=== PATIENT | female | born 1935 | race Caucasian/White ===

== ENCOUNTER 2016-09-27 19:04 | Emergency (ER) | payer MEDICARE, OTHER ==
[~2016-09-27] VITALS: Ht 162.6 cm; Wt 88.5 kg
--- NOTE | 2016-09-27 19:08 | NUR ---
PT BIB FROM HOME TO ER BED 09. PT IS LUXEMBOURGER SPEAKING. PER REPORT PT IS C/O DEHYDRATION. WAS NOTED TO BE HYPOTENSIVE. GOWNED AND PLACED ON MONITOR. AWAITING MD HUERTAS.
--- NOTE | 2016-09-27 19:10 | NUR ---
DR LEWIS AT BEDSIDE FOR EVAL.
--- NOTE | 2016-09-27 19:27 | NUR ---
RADIOLOGY AT BEDSIDE FOR CHEST XRAY.
[2016-09-27 19:30] LABS: BASOPHILS # (AUTO) 0.7 /CMM (0.0-0.2); EOSINOPHILS % (AUTO) 0.2 % (0.0-6.0); HEMATOCRIT 39 % (33-45); HEMOGLOBIN 12.6 g/dL (11.5-14.8); LYMPHOCYTES # (AUTO) 1.5 /CMM (0.8-4.8); LYMPHOCYTES % (AUTO) 6.4 % (20.0-44.0); MEAN CORPUSCULAR HEMOGLOBIN 30 PG (26.0-33.0); MEAN CORPUSCULAR HGB CONC 32 g/dl (31.0-36.0); MEAN CORPUSCULAR VOLUME 92 fL (82-100); MONOCYTES # (AUTO) 1.5 /CMM (0.1-1.30); MONOCYTES % (AUTO) 6.7 % (2.0-12.0); NEUTROPHILS # (AUTO) 19.3 /CMM (1.8-8.9); NEUTROPHILS % (AUTO) 83.7 % (43.0-81.0); PLATELET COUNT (AUTO) 262 /CMM (150-450); RDW COEFFICIENT OF VARIATION 15.2 (11.5-15.0); RED BLOOD CELL COUNT(AUTO) 4.24 MIL/uL (4.0-5.2)
[2016-09-27] MEDS ORDERED: IV NS 0.9% 500 ML BAG IV ONE (19:30)
[2016-09-27 19:42] LABS: INR 1.04 (0.87-1.13); PROTHROMBIN TIME 10.8 SECS (9.5-12.7)
[2016-09-27 19:47] LABS: ALANINE AMINOTRANSFERASE 30 U/L (12-78); ALBUMIN 3.1 g/dL (3.4-5.0); ALKALINE PHOSPHATASE 76 U/L (46-116); ASPARTATE AMINOTRANSFERASE 34 U/L (15-37); BILIRUBIN,DIRECT 0.2 mg/dL (0.0-0.2); BILIRUBIN,TOTAL 0.6 mg/dL (0.2-1.0); CALCIUM, SERUM 9.1 mg/dL (8.5-10.1); CARBON DIOXIDE 18 mmol/L (21-32); CHLORIDE 109 mmol/L (98-107); CREATININE 2.4 mg/dL (0.6-1.3); GLUCOSE 149 mg/dL (74-106); LIPASE 137 U/L (73-393); POTASSIUM 4.4 mmol/L (3.5-5.1); SODIUM SERUM 142 mmol/L (136-145); TOTAL PROTEIN, SERUM 7.2 g/dL (6.4-8.2); UREA NITROGEN, BLOOD 56 mg/dL (7-18)
[2016-09-27 19:49] LABS: TROPONIN I 0.077 ng/mL (0.00-0.056)
[2016-09-27 20:57] LABS: BAND % (MANUAL) 14 % (0.0-5.0); NEUTROPHILS % (MANUAL) 73 (42-76)
[2016-09-27 20:58] LABS: LYMPHOCYTES % (MANUAL) 7 % (16-48); MONOCYTES % (MANUAL) 6 % (0-11.0)
--- NOTE | 2016-09-27 20:58 | NUR ---
Patient discharged to home in stable condition. Written and verbal after care instructions given. Patient and Family verbalizes understanding of instruction.IV removed. Catheter intact and site benign. Pressure and 4x4 applied to site. No bleeding noted.
[2016-09-27 20:59] VITALS: BP 106/54
== END 2016-09-27 20:59 | disposition home or self-care (01) ==
LOC: ER 19:07
DX: R53.1 Weakness (principal); C34.90 Malignant neoplasm of unspecified part of unspecified bronchus or lung; G89.29 Other chronic pain; H40.9 Unspecified glaucoma; I10 Essential (primary) hypertension; R79.1 Abnormal coagulation profile
CPT/HCPCS: 36415; 71010; 80048; 80076; 83690; 84484; 85025; 85730; 93005; 99285; A4606; J7040 ×2; Z7610

== ENCOUNTER 2016-12-06 10:04 | Inpatient (IN) | payer MEDICARE, OTHER ==
[~2016-12-06] VITALS: Ht 154.9 cm; Wt 97.5 kg
--- NOTE | 2016-12-06 10:15 | NUR ---
BBRA 81 FROM HOME FOR SOB SINCE THIS AM, ON HOME O2. A/OX 4. BREATHING EVEN, SLIGHTLY LABORED. DIMINISHED LUNG SOUNDS, O2 SAT 97% ON 2L VIA NC. SAFETY AND COMFORT MEASURES IN PLACE. AWAITING MD ORDERS.
[2016-12-06] MEDS ORDERED: methylPREDNISolone SOD SUCC 125 MG/2ML VIAL ONE (10:22)
[2016-12-06] MEDS ORDERED: ALBUTEROL FS 2.5 MG/3 ML VIAL.NEB ONE ×2 (10:30→11:50)
[2016-12-06] MEDS ORDERED: ALBUTEROL FS 2.5 MG/3 ML VIAL.NEB NEB ONE ×2 (10:30→12:00)
[2016-12-06] MEDS ORDERED: IPRATROPIUM NEB FS 0.5 MG/2.5 ML AMPUL.NEB ONE ×2 (10:30→11:50)
[2016-12-06] MEDS ORDERED: IPRATROPIUM NEB FS 0.5 MG/2.5 ML AMPUL.NEB NEB ONE ×2 (10:30→12:00)
[2016-12-06] MEDS ORDERED: methylPREDNISolone SOD SUCC 125 MG/2ML VIAL IV ONE (10:30)
[2016-12-06 10:43] LABS: BASOPHILS % (AUTO) 0.5 % (0.0-2.0); EOSINOPHILS # (AUTO) 0.2 /CMM (0.0-0.7); EOSINOPHILS % (AUTO) 2.8 % (0.0-6.0); HEMATOCRIT 36 % (33-45); HEMOGLOBIN 11.7 g/dL (11.5-14.8); LYMPHOCYTES % (AUTO) 15.2 % (20.0-44.0); MEAN CORPUSCULAR HEMOGLOBIN 30 PG (26.0-33.0); MEAN CORPUSCULAR HGB CONC 33 g/dl (31.0-36.0); MEAN CORPUSCULAR VOLUME 91 fL (82-100); MONOCYTES # (AUTO) 0.5 /CMM (0.1-1.30); MONOCYTES % (AUTO) 6.7 % (2.0-12.0); NEUTROPHILS # (AUTO) 5.1 /CMM (1.8-8.9); NEUTROPHILS % (AUTO) 74.8 % (43.0-81.0); PLATELET COUNT (AUTO) 264 /CMM (150-450); RDW COEFFICIENT OF VARIATION 16.6 (11.5-15.0); RED BLOOD CELL COUNT(AUTO) 3.93 MIL/uL (4.0-5.2); WHITE BLOOD COUNT (AUTO) 6.8 K/uL (4.3-11.0)
[2016-12-06 10:58] LABS: CALCIUM, SERUM 9.3 mg/dL (8.5-10.1); CARBON DIOXIDE 25 mmol/L (21-32); CHLORIDE 106 mmol/L (98-107); CREATININE 1.5 mg/dL (0.6-1.3); GLUCOSE 171 mg/dL (74-106); POTASSIUM 4.1 mmol/L (3.5-5.1); SODIUM SERUM 139 mmol/L (136-145); UREA NITROGEN, BLOOD 49 mg/dL (7-18)
[2016-12-06] MEDS ORDERED: ESCI10TA PO (10:59)
[2016-12-06] MEDS ORDERED: DILT240C2 PO (10:59)
[2016-12-06] MEDS ORDERED: LORA1TAB PO (10:59)
[2016-12-06] MEDS ORDERED: NATE120T6 PO (10:59)
[2016-12-06] MEDS ORDERED: ERGO500047 PO (10:59)
[2016-12-06] MEDS ORDERED: ALPR0.25 PO (10:59)
[2016-12-06] MEDS ORDERED: ALLO300T2 PO (10:59)
[2016-12-06] MEDS ORDERED: IPRA12.9 IH (10:59)
[2016-12-06] MEDS ORDERED: FURO-145 PO (10:59)
[2016-12-06] MEDS ORDERED: FENT1PAT6 TD (10:59)
[2016-12-06 11:06] LABS: TROPONIN I 0.021 ng/mL (0.00-0.056)
[2016-12-06 11:11] LABS: ALANINE AMINOTRANSFERASE 32 U/L (12-78); ALBUMIN 3.3 g/dL (3.4-5.0); ALKALINE PHOSPHATASE 87 U/L (46-116); ASPARTATE AMINOTRANSFERASE 38 U/L (15-37); B-TYPE NATRIURETIC PEPTIDE 973 PG/ML (0-125); BILIRUBIN,DIRECT 0.1 mg/dL (0.0-0.2); BILIRUBIN,TOTAL 0.3 mg/dL (0.2-1.0)
--- NOTE | 2016-12-06 11:55 | NUR ---
RT at bedside for treatment
--- NOTE | 2016-12-06 12:19 | NUR ---
REPORT GIVEN TO DOMINGO ROWE FOR ADMISSION.
[2016-12-06] MEDS ORDERED: IV NS 0.9% 1,000 ML IV PRN ×2 (12:58→13:30)
[2016-12-06] MEDS ORDERED: ACETAMINOPHEN 325 MG TABLET PO PRN (13:00)
[2016-12-06] MEDS ORDERED: MAGNESIUM HYDROXIDE 30 ML UDC PO PRN (13:00)
[2016-12-06] MEDS ORDERED: Z GUARD REMEDY 2 OZ OINT TP PRN (13:00)
[2016-12-06] MEDS ORDERED: ZOLPIDEM TARTRATE 5 MG TABLET PO PRN (13:00)
[2016-12-06] MEDS ORDERED: ONDANSETRON HCL/PF 4 MG/2 ML VIAL IVP PRN (13:00)
[2016-12-06] MEDS ORDERED: MAG HYDROX/AL HYDROX/SIMETH 30 ML UDC PO PRN (13:00)
--- NOTE | 2016-12-06 13:00 | NUR ---
roofing applicatorjoiner notes Admitted a 81 years old female patient who came in via gurney accompanied by ER nurse who came in with the following diagnosis COPD exacerbation, and SOB. Patient is alert and oriented x 2, verbally responsive, arabic speaking, offered flu and pnuemonia vaccine and refused. Explained the risk and benefits of vaccinations and still refused. Dr. Reid on site and made aware and admission orders ordered. On tele monitor SR heart rate of 63. No complaint of pain or discomfort noted. On 02 @ 2lpm via NC and tolerated well, 02 saturation of 97%. IV intact and patent. Current weight of 221lbs. Vital signs checked and recorded. Will continue to monitor accordingly.
[2016-12-06] MEDS: ENOXAPARIN SODIUM 40 MG/0.4 ML DISP.SYRIN SQ SCH (13:36)
[2016-12-06 15:05] LABS: ABG BASE EXCESS -3.3 mmol/L; ABG OXYGEN SATURATION 93.9 % (92.0-98.5); ABG PCO2 40.2 mmHg (35.0-45.0); ABG PH 7.355 (7.350-7.450); ABG PO2 72.7 mmHg (75.0-100.0); AaDO2 79.5 mmHg; MetHb 0.5 % (0.0-1.5); O2Hb 93.4 % (94.0-97.0); SITE, ABG Left Radial; VENT MODE, BG NASAL CANNULA
[2016-12-06 16:00] VITALS: BP 146/58
--- NOTE | 2016-12-06 19:11 | NUR ---
teleprinter closing notes All needs provided, attended, and anticipated. On tele monitor SR heart rate of 65, no complaint of pain or discomfort noted. Kept patient clean and comfortable in bed, call light with in patient reach, endorsed to next shift RN to continue care.
[2016-12-06] MEDS ORDERED: LORAZEPAM 1 MG TABLET PO PRN (19:30)
--- NOTE | 2016-12-06 19:35 | NUR ---
BUSINESS EXCELLENCE LEADER NOTE RECEIVED PATIENT FROM DAY SHIFT, PATIENT IS ALERT AND ORIENTEDX2, IRISH SPEAKER MAINLY, NO S/S OF RESPIRATORY DISTRESS OR PAIN AT THIS TIME. TELE SR 65. SRX2, BED IN LOW POSITION, CALL LIGHT WITHIN REACH, WILL CONTINUE TO MONITOR PATIENT.
[2016-12-06] MEDS: IPRATROPIUM NEB FS 0.5 MG/2.5 ML AMPUL.NEB NEB SCH (20:09)
[2016-12-06] MEDS: ESCITALOPRAM OXALATE (10 MG) 10 MG TABLET PO SCH (21:14)
[2016-12-06] MEDS: ALPRAZOLAM 0.25 MG TABLET PO PRN (21:14)
--- NOTE | 2016-12-06 21:15 | NUR ---
OPERATING COST CLERK NOTE XANAX 0.25MG PO GIVEN PER PATIENT'S REQUEST. WILL MONITOR EFFECTIVENESS.
[2016-12-06 22:00] VITALS: BP 167/69
[2016-12-06] MEDS ORDERED: CLONIDINE HCL 0.1 MG TABLET ONE (23:50)
--- NOTE | 2016-12-06 23:55 | NUR ---
SENIOR DIRECTOR OF GLOBAL COMMERCIAL TECHNOLOGY SOLUTIONS NOTE PATIENT BP WAS 169/80, PULSE 80. REPORTED TO ONCALL MD AGUILAR, GOT AN ORDER OF CLONIDINE 0.1MG PO Q6H PRN WHEN SBP>160. ORDERS PUT IN AND ADMINISTERED. WILL RECHECK HER BP.
[2016-12-07] VITALS: BP 169/80
[2016-12-07] MEDS ORDERED: CLONIDINE HCL 0.1 MG TABLET PO PRN
[2016-12-07] MEDS: HYDROCODONE/APAP 5/325MG 1 EACH TABLET PO PRN ×2 (01:09→18:15)
--- NOTE | 2016-12-07 01:09 | NUR ---
WINDING INSPECTOR NOTE PATIENT COMPLAINS OF ABDOMINAL PAIN 08/27, NORCO 5-325MG PO GIVEN. WILL REASSESS EFFECTIVENESS.
[2016-12-07 08:00] VITALS: BP 148/90
[2016-12-07] MEDS: FUROSEMIDE 20 MG TABLET PO SCH (09:07)
[2016-12-07] MEDS: DILTIAZEM HCL CD 240 MG PO SCH (09:07)
[2016-12-07] MEDS: ENOXAPARIN SODIUM 40 MG/0.4 ML DISP.SYRIN SQ SCH (09:10)
[2016-12-07] MEDS ORDERED: BUMETANIDE INJ 2 MG in IV NS 0.9% 32 ML IV ONE (09:30)
[2016-12-07] MEDS: IPRATROPIUM NEB FS 0.5 MG/2.5 ML AMPUL.NEB NEB SCH ×3 (09:57→20:02)
--- NOTE | 2016-12-07 10:08 | NUR ---
BACK SEAM STITCHER OPENING NOTES SYSTEM WAS DOWN THIS MORNING. SEE OPENING NOTES ON THE CHART.
[2016-12-07] MEDS ORDERED: hydrALAZINE HCL 25 MG TABLET PO PRN (10:30)
[2016-12-07 10:35] LABS: CALCIUM, SERUM 9.9 mg/dL (8.5-10.1); CARBON DIOXIDE 25 mmol/L (21-32); CHLORIDE 105 mmol/L (98-107); CREATININE 1.3 mg/dL (0.6-1.3); GLUCOSE 168 mg/dL (74-106); MAGNESIUM 1.9 mg/dL (1.8-2.4); PHOSPHORUS 4.5 mg/dL (2.5-4.9); POTASSIUM 4.4 mmol/L (3.5-5.1); SODIUM SERUM 140 mmol/L (136-145); UREA NITROGEN, BLOOD 46 mg/dL (7-18)
[2016-12-07] MEDS ORDERED: LEVOFLOXACIN 500 MG /D5W 100ML 500 MG in PREMIX 1 EA IV ONE ×2 (11:00→13:00)
[2016-12-07] MEDS ORDERED: LEVOFLOXACIN 500 MG /D5W 100ML 500 MG in PREMIX 1 EA IV SCH ×2 (11:00→13:00)
[2016-12-07] MEDS ORDERED: LEVOFLOXACIN 250 MG /D5W 50 ML 250 MG in PREMIX 1 EA IV SCH (11:00)
[2016-12-07 11:09] LABS: BASOPHILS % (AUTO) 0.1 % (0.0-2.0); HEMATOCRIT 35 % (33-45); HEMOGLOBIN 11.4 g/dL (11.5-14.8); MEAN CORPUSCULAR HEMOGLOBIN 30 PG (26.0-33.0); MEAN CORPUSCULAR HGB CONC 33 g/dl (31.0-36.0); MEAN CORPUSCULAR VOLUME 92 fL (82-100); MONOCYTES % (AUTO) 1.5 % (2.0-12.0); NEUTROPHILS % (AUTO) 86.4 % (43.0-81.0); PLATELET COUNT (AUTO) 263 /CMM (150-450); RDW COEFFICIENT OF VARIATION 16.2 (11.5-15.0); RED BLOOD CELL COUNT(AUTO) 3.81 MIL/uL (4.0-5.2); WHITE BLOOD COUNT (AUTO) 8.5 K/uL (4.3-11.0)
[2016-12-07] MEDS: LEVOFLOXACIN 250 MG /D5W 50 ML 250 MG in PREMIX 1 EA IV SCH (11:56)
[2016-12-07 12:00] VITALS: BP 155/68
--- NOTE | 2016-12-07 13:09 | NUR ---
RN NOTES ABX LEVAQUIN 500MG IVPB NOT GIVEN AT 1100, TIME OF ADMINISTRATION CHANGED TO 1300. WILL CONTINUE TO MONITOR
[2016-12-07] MEDS: ALPRAZOLAM 0.25 MG TABLET PO PRN (14:41)
--- NOTE | 2016-12-07 14:43 | NUR ---
RN NOTES PT NOTED RESTLESS, PRN XANAX 0.25MG GIVEN. DAUGHTER AT BEDSIDE AND AWARE OF PT'S CURRENT STATUS. WILL CONTINUE TO MONITOR.
[2016-12-07 16:00] VITALS: BP 127/62
[2016-12-07 17:10] LABS: APPEARANCE,URINE SL CLOUDY (CLEAR); BILIRUBIN,URINE NEGATIVE (NEGATIVE); BLOOD, URINE NEGATIVE Ery/uL (NEGATIVE); COLOR,URINE YELLOW (YELLOW); KETONES,URINE NEGATIVE (NEGATIVE); LEUKOCYTE ESTERASE ,URINE TRACE (NEGATIVE); NITRITE, URINE NEGATIVE (NEGATIVE); PROTEIN,URINE 1+ mg/dl (NEGATIVE); UGLUCOSE NEGATIVE (NEGATIVE); UROBILINOGEN,URINE 0.2 EU/dL (0.2)
[2016-12-07 17:14] LABS: BACTERIA,URINE Rare /HPF (None Seen); RBC,URINE 0-2 /HPF (0-2); SQUAMOUS EPITHELIAL CELL,UR Few /HPF (None Seen)
[2016-12-07 17:53] LABS: MAGNESIUM 1.9 mg/dL (1.8-2.4); PHOSPHORUS 3.6 mg/dL (2.5-4.9)
--- NOTE | 2016-12-07 19:01 | NUR ---
CREATIVE SERVICES DIRECTOR CLOSING NOTES PATIENT RESTING ON CHAIR BY BEDSIDE AT THIS TIME. ALERT AND ORIENTEDX2, WALLISIAN SPEAKER MAINLY. ON 02 VIA N/C AT 2LPM, NO S/S OF RESPIRATORY DISTRESS OR PAIN AT THIS TIME. ON TELE MONITORING WITH CURRENT READING OF SR AND HR OF 62. KEPT BED WITH SR UPX2, BED IN LOW AND LOCKED POSITION, CALL LIGHT WITHIN REACH. ALL NEEDS AND CARE PROVIDED WELL. WILL ENDORSED TO TRAMPOLINE TEAM COACH NURSE FOR ADITHYA.
--- NOTE | 2016-12-07 19:06 | NUR ---
DRIVER SALES NOTE RECEIVED PATIENT FROM DAY SHIFT, PATIENT IS ALERT AND ORIENTEDX2, CONFUSED AT TIMES, ICELANDIC SPEAKER, NO S/S OF RESPIRATORY DISTRESS OR PAIN AT THIS TIME. IV ON LEFT WRIST IS PATENT AND INTACT, SL ONLY. TELE SR 64 WITH BBB. SRX2, BED IN LOW POSITION, CALL LIGHT WITHIN REACH, WILL CONTINUE TO MONITOR PATIENT.
--- NOTE | 2016-12-07 19:23 | NUR ---
Patient speaks Swedish only. She is alert and pleasant. Spoke with daughter Madison [phone], patient lives alone in the upper apartment with no elevator access. Patient ambulates with a walker, she requires min assist with adl's. She own a wheelchair, walker, shower chair, glucometer and commode. No homehealth services reported. Patient has 180hrs/month of [facility] caregiver. Her pcp is Dr. Valdez.Family want patient to return home and are working on hiring additional caregiver for the patient. Addendum: 12/07/16 at 1924 by DIMPLE CORTEZ RN Amended: Links added.
[2016-12-07 20:00] VITALS: BP 155/75
--- NOTE | 2016-12-07 21:00 | NUR ---
REGIONAL TRUCK DRIVER NOTE ATIVAN 1MG PO GIVEN PER PATIENT HAS ANXIETY. WILL MONITOR EFFECTIVENESS.
[2016-12-07] MEDS: ESCITALOPRAM OXALATE (10 MG) 10 MG TABLET PO SCH (21:01)
[2016-12-07 21:26] LABS: THYROID STIMULATING HORMONE 0.623 uIU/mL (0.358-3.74)
[2016-12-08] VITALS: BP 145/92
[2016-12-08] MEDS: IPRATROPIUM NEB FS 0.5 MG/2.5 ML AMPUL.NEB NEB SCH ×4 (02:37→20:39)
[2016-12-08 04:00] VITALS: BP 146/76
[2016-12-08] MEDS: ALPRAZOLAM 0.25 MG TABLET PO PRN (05:56)
--- NOTE | 2016-12-08 06:43 | NUR ---
WINERY CELLAR HAND NOTE PATIENT IS RESTING IN BED, NO S/S OF PAIN OR DISCOMFORT AT THIS TIME. IV ON LEFT WRIST IS PATENT AND INTACT, HL ONLY. TELE MONITOR SR 63. WILL ENDORSE TO DAY SHIFT NURSE FOR ADITHYA.
[2016-12-08 07:08] LABS: BASOPHILS % (AUTO) 0.1 % (0.0-2.0); EOSINOPHILS % (AUTO) 0.1 % (0.0-6.0); HEMATOCRIT 35 % (33-45); HEMOGLOBIN 11.4 g/dL (11.5-14.8); LYMPHOCYTES # (AUTO) 1.2 /CMM (0.8-4.8); LYMPHOCYTES % (AUTO) 9.3 % (20.0-44.0); MEAN CORPUSCULAR HEMOGLOBIN 30 PG (26.0-33.0); MEAN CORPUSCULAR HGB CONC 32 g/dl (31.0-36.0); MEAN CORPUSCULAR VOLUME 92 fL (82-100); MONOCYTES # (AUTO) 0.5 /CMM (0.1-1.30); MONOCYTES % (AUTO) 4.2 % (2.0-12.0); NEUTROPHILS # (AUTO) 10.9 /CMM (1.8-8.9); NEUTROPHILS % (AUTO) 86.3 % (43.0-81.0); PLATELET COUNT (AUTO) 281 /CMM (150-450); RDW COEFFICIENT OF VARIATION 16.5 (11.5-15.0); RED BLOOD CELL COUNT(AUTO) 3.82 MIL/uL (4.0-5.2); WHITE BLOOD COUNT (AUTO) 12.6 K/uL (4.3-11.0)
--- NOTE | 2016-12-08 07:28 | NUR ---
MS/RN OPENING NOTE PATIENT RECEIVED IN BED AWAKE IN STABLE CONDITION. A/O X 2 WITH EPISODES OF CONFUSION AND FORGETFULNESS. MOLDOVAN SPEAKING. NO SIGNS OF ACUTE DISTRESS. NO COMPLAIN OF PAIN OR DISCOMFORT. ON TELE MONITOR WITH SR. ALL NEEDS ATTENDED TO. CALL LIGHT WITHIN REACH. WILL CONTINUE TO MONITOR TO ENSURE SAFETY.
[2016-12-08 07:31] LABS: CALCIUM, SERUM 9.7 mg/dL (8.5-10.1); CARBON DIOXIDE 26 mmol/L (21-32); CHLORIDE 102 mmol/L (98-107); CREATININE 1.5 mg/dL (0.6-1.3); GLUCOSE 138 mg/dL (74-106); MAGNESIUM 1.8 mg/dL (1.8-2.4); POTASSIUM 4.3 mmol/L (3.5-5.1); SODIUM SERUM 138 mmol/L (136-145); UREA NITROGEN, BLOOD 53 mg/dL (7-18)
[2016-12-08 08:00] VITALS: BP 162/83
[2016-12-08] MEDS: ENOXAPARIN SODIUM 40 MG/0.4 ML DISP.SYRIN SQ SCH (08:26)
[2016-12-08] MEDS: FUROSEMIDE 20 MG TABLET PO SCH (08:26)
[2016-12-08] MEDS: DILTIAZEM HCL CD 240 MG PO SCH (08:26)
[2016-12-08] MEDS: hydrALAZINE HCL 50 MG TABLET PO SCH ×3 (09:20→16:46)
[2016-12-08] MEDS: ISOSORBIDE DINITRATE (20MG) 20 MG TABLET PO SCH ×2 (09:20→16:46)
[2016-12-08] MEDS: LEVOFLOXACIN 250 MG /D5W 50 ML 250 MG in PREMIX 1 EA IV SCH (10:54)
[2016-12-08] MEDS: predniSONE 20 MG TABLET PO SCH (13:52)
[2016-12-08] MEDS: ANASTROZOLE 1 MG TABLET PO SCH (13:52)
[2016-12-08] MEDS: LACTOBACILLUS RHAMNOSUS GG 1 EACH CAP.SPRINK PO SCH ×2 (15:11→16:45)
--- NOTE | 2016-12-08 15:34 | NUR ---
MS/RN SPOKE WITH CHRISTEN LARDER COOK SPOKE WITH CHRISTEN SCHERER AND MADE AWARE PER DAUGHTER BRIAN PATIENT'S USUALLY GETS CONFUSE AFTER TAKING XANAX AND ACCORDING TO HER PRIMARY SHE TAKES BUSPAR 15MG PO BID FOR ANXIETY. PER CHRISTEN LARDER COOK, TO KEEP XANAX PRN AND START BUSPAR 15MG PO BID FOR ANXIETY.
[2016-12-08 16:00] VITALS: BP 146/80
--- NOTE | 2016-12-08 16:10 | NUR ---
MS/RN DIETARY REC. SPOKE WITH GILMER VELÁSQUEZ AND MADE AWARE REGARDING DIETARY REC. OF BOOST GLYTROL PO BID SECONDARY PATIENT NOTED WITH POOR PO INTAKE. PER CHRISTEN, ORDER TO START BOOST GLYTROL PO BID. ORDER NOTED AND CARRIED OUT.
[2016-12-08] MEDS: busPIRone 5 MG TABLET PO SCH (16:45)
[2016-12-08] MEDS: BOOST GLUCOSE CONTROL VANILLA 237 ML BOX PO SCH (17:44)
--- NOTE | 2016-12-08 18:17 | NUR ---
MS/RN CLOSING NOTE PATIENT IN BED IN STABLE CONDITION. A/O X 2-3. KINYARWANDA SPEAKING. NO SIGNS OF ACUTE DISTRESS. NO COMPLAIN OF PAIN OR DISCOMFORT. ALL NEEDS ATTENDED TO. CALL LIGHT WITHIN REACH. WILL ENDORSE TO NEXT SHIFT FOR CONTINUITY OF CARE.
--- NOTE | 2016-12-08 19:30 | NUR ---
MS/RN OPENING NOTES PT RECEIVED AWAKE, HOB ELEVATED, HIGH FOWLERS POSITION. THAI SPEAKING. ON 3LPM O2 VIA NC, BREATHING EVEN AND UNLABORED. NO S/S OF DISTRESS NOTED. IV TO LEFT WRIST PATENT AND INTACT, SL. BED IN LOW/LOCKED POSITION, CALL LIGHT IN REACH AND SIDE RAILS UPX2. BED ALARM ON FOR SAFETY. WILL CONTINUE TO MONITOR
[2016-12-08 20:00] VITALS: BP 128/50
[2016-12-08] MEDS: ESCITALOPRAM OXALATE (10 MG) 10 MG TABLET PO SCH (21:16)
--- NOTE | 2016-12-08 21:20 | NUR ---
MS/RN NOTES PT C/O ABDOMINAL PAIN AND HAS NOT HAD BM IN A FEW DAYS. ADMINISTERED PRN MILK OF MAGNESIA ORDERED.
[2016-12-09] MEDS: IPRATROPIUM NEB FS 0.5 MG/2.5 ML AMPUL.NEB NEB SCH ×4 (01:44→19:35)
[2016-12-09 06:31] LABS: BASOPHILS % (AUTO) 0.2 % (0.0-2.0); HEMATOCRIT 33 % (33-45); HEMOGLOBIN 11.1 g/dL (11.5-14.8); LYMPHOCYTES # (AUTO) 1.1 /CMM (0.8-4.8); LYMPHOCYTES % (AUTO) 12.8 % (20.0-44.0); MEAN CORPUSCULAR HEMOGLOBIN 31 PG (26.0-33.0); MEAN CORPUSCULAR HGB CONC 34 g/dl (31.0-36.0); MEAN CORPUSCULAR VOLUME 92 fL (82-100); MONOCYTES # (AUTO) 0.5 /CMM (0.1-1.30); NEUTROPHILS # (AUTO) 7.4 /CMM (1.8-8.9); PLATELET COUNT (AUTO) 257 /CMM (150-450); RDW COEFFICIENT OF VARIATION 16.5 (11.5-15.0); RED BLOOD CELL COUNT(AUTO) 3.63 MIL/uL (4.0-5.2)
[2016-12-09 06:45] LABS: CALCIUM, SERUM 9.6 mg/dL (8.5-10.1); CARBON DIOXIDE 27 mmol/L (21-32); CHLORIDE 102 mmol/L (98-107); CREATININE 1.4 mg/dL (0.6-1.3); GLUCOSE 136 mg/dL (74-106); POTASSIUM 4.3 mmol/L (3.5-5.1); SODIUM SERUM 139 mmol/L (136-145); UREA NITROGEN, BLOOD 61 mg/dL (7-18)
--- NOTE | 2016-12-09 06:52 | NUR ---
MS/RN CLOSING NOTES PT ASLEEP, EASILY AROUSABLE TO NAME. A/OX4, REMAINS ON ROOM AIR, BREATHING EVEN AND UNLABORED. DENIES SOB OR DISTRESS AT THIS TIME. PAIN TO RIGHT ARM NOTED UPON MOVEMENT. NO COMPLAINTS OF PAIN AT THIS TIME. IV TO LEFT WRIST PATENT AND INTACT. SNACKS PROVIDED DURING SHIFT. MADE PT COMFORTABLE POSSIBLE. ALL NEEDS MET AND ATTENDED. BED IN LOW/LOCKED POSITION WITH CALL LIGHT IN REACH. SIDE RAILS UPX2.
--- NOTE | 2016-12-09 07:30 | NUR ---
MS RN OPENING NOTE RECEIVED SBAR REPORT AT THE BEDSIDE. PATIENT IS 81 Y/O BELIZEAN SPEAKING FEMALE A/O X3, CONFUSED AT TIME, FORGETFUL OF SPECIFIC DATES. AWAKE AND COOPERATIVE. PATIENT IS IN BED, BED IS LOCKED IN LOWEST POSITION, SIDE RAILS UP X2, BED ALARM IS ON. CALL LIGHT WITHIN REACH. EDUCATED THE PATIENT TO CALL FOR ASSISTANCE USING THE CALL LIGHT. PATIENT VERBALIZED FULL UNDERSTANDING OF THE TEACHINGS. DENIES PAIN/DISCOMFORT AT THIS TIME. PRESENTS WITH UNLABORED SPONTANEOUS RESPIRATIONS. CHEST RISING EQUALLY BILATERALLY. SPO2 95% RA. ALL NEEDS ARE ATTENDED TO. WILL CONTINUE TO ASSESS/MONITOR THROUGHOUT THE SHIFT.
--- NOTE | 2016-12-09 07:43 | NUR ---
MS RN NOTE RT AT THE BEDSIDE.
[2016-12-09 08:00] VITALS: BP 150/69
[2016-12-09] MEDS: BOOST GLUCOSE CONTROL VANILLA 237 ML BOX PO SCH ×2 (08:05→16:29)
--- NOTE | 2016-12-09 08:26 | NUR ---
MS RN NOTE DR ZAMORA AT THE BEDSIDE. PER DR ZAMORA CHECK PATIENT'S SPO2 AT REST THEN UPON AMBULATION. REPORT THE RESULT TO DR. ZAMORA. YADIRA HAYES CURRENTLY AT THE BEDSIDE. YADIRA WAS ASKED TO CHECK THE SPO2 AT REST AND UPON AMBULATION AND REPORT THE RESULTS TO RN.
[2016-12-09] MEDS: predniSONE 20 MG TABLET PO SCH (09:37)
[2016-12-09] MEDS: ISOSORBIDE DINITRATE (20MG) 20 MG TABLET PO SCH ×2 (09:38→16:30)
[2016-12-09] MEDS: ANASTROZOLE 1 MG TABLET PO SCH (09:38)
[2016-12-09] MEDS: DILTIAZEM HCL CD 240 MG PO SCH (09:39)
[2016-12-09] MEDS: busPIRone 5 MG TABLET PO SCH ×2 (09:39→16:31)
[2016-12-09] MEDS: FOLIC ACID 1 MG TABLET PO SCH (09:41)
[2016-12-09] MEDS: LACTOBACILLUS RHAMNOSUS GG 1 EACH CAP.SPRINK PO SCH ×2 (09:41→16:29)
[2016-12-09] MEDS: hydrALAZINE HCL 50 MG TABLET PO SCH ×3 (09:41→16:30)
[2016-12-09] MEDS: ENOXAPARIN SODIUM 40 MG/0.4 ML DISP.SYRIN SQ SCH (09:54)
[2016-12-09] MEDS: LEVOFLOXACIN 250 MG /D5W 50 ML 250 MG in PREMIX 1 EA IV SCH (11:39)
--- NOTE | 2016-12-09 12:49 | NUR ---
MS RN NOTE DR HERNANDEZ AT THE BEDSIDE. REPORTED TO PATIENT WAS NOT ON BG MONITORING SCHEDULE AND IS CURRENTLY ON CARDIAC DIET. PER DR HERNANDEZ MODIFY DIET TO CARDIAC WITH CCHO, ORDER LUBRICATING EYE DROPS AND ADD AC/HS BLOOD GLUCOSE MONITORING SCHEDULE.
[2016-12-09] MEDS ORDERED: DEXTROSE 50%-WATER 50 ML DISP.SYRIN IV PRN (13:00)
[2016-12-09] MEDS ORDERED: POLYVINYL ALCOHOL 15 ML BOTTLE EACHEYE PRN (13:00)
[2016-12-09 16:00] VITALS: BP 138/63
--- NOTE | 2016-12-09 16:25 | NUR ---
MS RN NOTE PATIENT IS VERY ANXIOUS. ASKING FOR SOMETHING TO CALM HER DOWN. SPOKE TO SUZY, PATIENT'S DAUGHTER DISCUSSING ADMINISTRATION OF XANAX THE DAUGHTER PREVIOUSLY ASK NOT TO ADMINISTER XANAX UNLESS ABSOLUTELY NECESSARY SHE BELIVES THAT XANAX CAUSES THE PATIENT TO BECOME MORE CONFUSED. DAUGHTER VERBALIZED UNDERSTANDING OF THE REASONS BEHIND NECESSITY OF THE MEDICATION ADMINISTRATION AT THIS TIME. WILL ADMINISTER XANAX PRESCRIBED.
[2016-12-09] MEDS: ALPRAZOLAM 0.25 MG TABLET PO PRN (16:31)
[2016-12-09] MEDS: BLOOD SUGAR DIAGNOSTIC 1 EACH STRIP IN SCH ×2 (17:11→21:55)
[2016-12-09] MEDS: INSULIN REGULAR, HUMAN 100 UNIT/ML 3 ML VIAL SQ PRN (17:17)
--- NOTE | 2016-12-09 19:45 | NUR ---
RN OPENING NOTES RECEIVED REPORT FROM [facility] L[facility]. FOUND Pt SITTING UP IN BED, NEEDING ASSISTANCE TO THE RESTROOM. ASSISTED Pt TO THE RESTROOM. Pt SHOWED NO S/S OF ACUTE DISTRESS, SLIGHT SOB ON EXERTION, RT WAS AT BEDSIDE WHEN Pt RETURNED TO BED FROM THE RESTROOM. IV ACCESS ON L WRIST #20G, SL. NO BP OR IV BLOOD DRAW ON R ARM D/T R SIDE MASTECTOMY. Pt IS A/OX3, UZBEK/BURKINAN SPEAKING ONLY. SAFETY MEASURES IN PLACE. BED LOW, LOCKED, HOB ELEVATED, SIDE RAILS UP, CALL LIGHT AND BEDSIDE TABLE WITHIN REACH. WILL CONTINUE TO MONITOR Pt THROUGHOUT THE NIGHT FOR SAFETY.
--- NOTE | 2016-12-09 19:47 | NUR ---
MS RN CLOSING NOTE GAVE SBAR REPORT AT THE BEDSIDE. PATIENT IS 81 Y/O GUYANESE SPEAKING FEMALE A/O X3, CONFUSED AT TIME, FORGETFUL OF SPECIFIC DATES. AWAKE AND COOPERATIVE. PATIENT IS IN BED, BED IS LOCKED IN LOWEST POSITION, SIDE RAILS UP X2, BED ALARM IS ON. CALL LIGHT WITHIN REACH. DENIES PAIN/DISCOMFORT AT THIS TIME. PRESENTS WITH UNLABORED SPONTANEOUS RESPIRATIONS. CHEST RISING EQUALLY BILATERALLY. SPO2 95% RA. ALL NEEDS ARE ATTENDED TO.ENDORSED TO THE TEAM ASSEMBLY LINE MACHINE OPERATOR FOR ADITHYA.
[2016-12-09 20:00] VITALS: BP 155/70
[2016-12-09] MEDS: ESCITALOPRAM OXALATE (10 MG) 10 MG TABLET PO SCH (21:56)
--- NOTE | 2016-12-09 22:15 | NUR ---
RN NOTES HS ACCUCHECK BG 129. NO INSULIN COVERAGE NEEDED AT THIS TIME.
[2016-12-10] MEDS: IPRATROPIUM NEB FS 0.5 MG/2.5 ML AMPUL.NEB NEB SCH ×3 (01:55→13:35)
--- NOTE | 2016-12-10 06:35 | NUR ---
AC ACCUCHECK BG 99. NO INSULIN COVERAGE NEEDED AT THIS TIME.
[2016-12-10] MEDS: BLOOD SUGAR DIAGNOSTIC 1 EACH STRIP IN SCH ×3 (06:45→17:32)
--- NOTE | 2016-12-10 06:55 | NUR ---
RN CLOSING NOTES Pt REMAINS IN STABLE CONDITION. NO SIGNIFICANT CHANGES NOTED DURING THE NIGHT. NO S/S OF ACUTE DISTRESS OR SEVERE SOB NOTED DURING THE SHIFT. ALL NEEDS MET AND ATTENDED TO. SAFETY MEASURES IN PLACE. WILL ENDORSE TO DAYSHIFT RN FOR Pt's ADITHYA.
[2016-12-10 08:00] VITALS: BP 147/60
--- NOTE | 2016-12-10 08:05 | NUR ---
RN NOTES RECEIVED PT. PT IS STABLE AND RESTING IN BED. A/OX3, PT IS MAORI & AMERICAN SPEAKING ONLY. NO S/S OF RESPIRATORY DISTRESS. PT DOES NOT APPEAR TO BE IN PAIN. NO BP/IV/BLOOD DRAW ON RIGHT ARM DUE TO HX OF RIGHT MASTECTOMY. IV ACCESS LOCATED ON LEFT WRIST, 20 G SL. CASE MANAGEMENT TO F/U IN ORDER TO EVALUATE LIVING SITUATION. SAFETY MEASURES IN PLACE, CALL LIGHT WITHIN REACH. WILL CONTINUE TO MONITOR.
[2016-12-10] MEDS: ENOXAPARIN SODIUM 40 MG/0.4 ML DISP.SYRIN SQ SCH (08:32)
[2016-12-10] MEDS: predniSONE 20 MG TABLET PO SCH (08:33)
[2016-12-10] MEDS: FOLIC ACID 1 MG TABLET PO SCH (08:33)
[2016-12-10] MEDS: busPIRone 5 MG TABLET PO SCH ×3 (08:33→17:32)
[2016-12-10] MEDS: hydrALAZINE HCL 50 MG TABLET PO SCH ×3 (08:33→17:33)
[2016-12-10] MEDS: LACTOBACILLUS RHAMNOSUS GG 1 EACH CAP.SPRINK PO SCH ×2 (08:33→17:32)
[2016-12-10] MEDS: DILTIAZEM HCL CD 240 MG PO SCH (08:34)
[2016-12-10] MEDS: ANASTROZOLE 1 MG TABLET PO SCH (08:34)
[2016-12-10] MEDS: ISOSORBIDE DINITRATE (20MG) 20 MG TABLET PO SCH ×2 (08:47→17:33)
[2016-12-10 09:00] VITALS: BP 147/60
[2016-12-10] MEDS: LEVOFLOXACIN 250 MG /D5W 50 ML 250 MG in PREMIX 1 EA IV SCH (10:55)
[2016-12-10] MEDS: BOOST GLUCOSE CONTROL VANILLA 237 ML BOX PO SCH ×2 (11:00→17:34)
--- NOTE | 2016-12-10 11:30 | NUR ---
MS RN RECEIVED REPORT FROM [facility], PATIENT IS AWAKE,ALERT,ORIENTED X3,FAROESE/GABONESE SPEAKING, NOT IN ANY FORM OF DISTRESS, RESPIRATIONS EVEN AND UNLABORED,DENIES PAIN AT THIS TIME, NO SOB NOTED. WILL MONITOR PATIENT'S CONDITION.
--- NOTE | 2016-12-10 12:00 | NUR ---
MS RN BS - 157 - COVERAGE NOT GIVE, PATIENT DID NOT EAT LUNCH, NO S/S OF HYPER/HYPOGLYCEMIA NOTED.
[2016-12-10] MEDS: ALPRAZOLAM 0.25 MG TABLET PO PRN (14:10)
[2016-12-10 14:14] LABS: *SPE ALBUMIN 3.6 g/dL (2.9-4.4); *SPE ALPHA-1-GLOBULIN 0.4 g/dL (0.0-0.4); *SPE BETA GLOBULIN 1.2 g/dL (0.7-1.3); *SPE GLOBULIN, TOTAL 3.6 g/dL (2.2-3.9); *SPE M-SPIKE Not Observed g/dL (Not Observed); *SPE PROTEIN TOTAL 7.2 g/dL (6.0-8.5); *SPEGAMMA GLOBULIN 1.1 g/dL (0.4-1.8)
[2016-12-10 16:00] VITALS: BP 138/63
[2016-12-10 17:33] VITALS: BP 138/63
[2016-12-10] MEDS: INSULIN REGULAR, HUMAN 100 UNIT/ML 3 ML VIAL SQ PRN (17:37)
--- NOTE | 2016-12-10 19:00 | NUR ---
MS RN PATIENT WENT HOME ACCOMPANIED BY DAUGHTER VIA AMBULANCE.
--- NOTE | 2016-12-10 19:15 | NUR ---
MS/RN NOTES PATIENT ALERT, ORIENTED X3, MALTESE SPEAKING AND FAMILY AT BEDSIDE, TRANSPORTATION DIABETES TERRITORY MANAGER W/ 2 EMT VIA GURNEY, PATIENT AM RN PROVIDED DISCHARGE NEEDS AND KEPT PATIENT ON 2L VIA NC FOR THERAPEUTIC MEASURES.
[2016-12-11] MEDS ORDERED: LEVOFLOXACIN (250MG) 250 MG TABLET PO SCH (11:00)
== END 2016-12-10 19:15 | disposition home health service (06) | DRG 291 ==
LOC: ER 10:06 → TELE 12:20 → MED 12-08 08:37
PROVIDERS: ADMIT Internal Medicine; ATTEND Internal Medicine
DX: I11.0 Hypertensive heart disease with heart failure (principal); J96.01 Acute respiratory failure with hypoxia; N17.0 Acute kidney failure with tubular necrosis; G93.41 Metabolic encephalopathy; J15.9 Unspecified bacterial pneumonia; C78.2 Secondary malignant neoplasm of pleura; C78.00 Secondary malignant neoplasm of unspecified lung; J44.0 Chronic obstructive pulmonary disease with (acute) lower respiratory infection; D52.9 Folate deficiency anemia, unspecified; E44.1 Mild protein-calorie malnutrition; J44.1 Chronic obstructive pulmonary disease with (acute) exacerbation; F13.20 Sedative, hypnotic or anxiolytic dependence, uncomplicated; J98.11 Atelectasis; Z68.41 Body mass index [BMI] 40.0-44.9, adult; C50.919 Malignant neoplasm of unspecified site of unspecified female breast; E78.5 Hyperlipidemia, unspecified; I25.10 Atherosclerotic heart disease of native coronary artery without angina pectoris; Z85.3 Personal history of malignant neoplasm of breast; Z87.891 Personal history of nicotine dependence; Z90.11 Acquired absence of right breast and nipple; Z92.21 Personal history of antineoplastic chemotherapy; K21.9 Gastro-esophageal reflux disease without esophagitis; J20.9 Acute bronchitis, unspecified; I13.0 Hypertensive heart and chronic kidney disease with heart failure and stage 1 through stage 4 chronic kidney disease, or unspecified chronic kidney disease; N18.9 Chronic kidney disease, unspecified; G47.33 Obstructive sleep apnea (adult) (pediatric); F41.1 Generalized anxiety disorder; D63.8 Anemia in other chronic diseases classified elsewhere; E66.01 Morbid (severe) obesity due to excess calories; H40.9 Unspecified glaucoma; Z79.899 Other long term (current) drug therapy; I50.33 Acute on chronic diastolic (congestive) heart failure
CPT/HCPCS: 36415; 36600; 70450-TC; 71010-TC; 71250-TC; 80048-TC; 80061-TC; 80076-TC; 81000-TC; 82306; 82728-TC; 82746; 82803-TC; 82962-TC; 83540-TC; 83735-TC; 83880; 84100-TC; 84155; 84165; 84439-TC; 84443-TC; 84484-TC; 85025-TC; 85652-TC; 86300; 87081-TC; 87086-TC; 93307-TC; A4216; A4606; J1650; J1815; J1956; J2930; J3490; J7030; Z7610

== ENCOUNTER 2017-01-13 23:07 | Inpatient (IN) | payer MEDICARE, OTHER ==
[~2017-01-13] VITALS: Ht 157.5 cm; Wt 99.5 kg
[~2017-01-13 23:07] MED LIST: ALLO300T2 PO; ALPR0.25 PO; DILT240C2 PO; ERGO500047 PO; ESCI10TA PO; FENT1PAT6 TD; FURO-145 PO; IPRA12.9 IH; LORA1TAB PO; NATE120T6 PO
[2017-01-13 23:53] LABS: BASOPHILS % (AUTO) 0.2 % (0.0-2.0); EOSINOPHILS # (AUTO) 0.2 /CMM (0.0-0.7); EOSINOPHILS % (AUTO) 2.6 % (0.0-6.0); HEMATOCRIT 35 % (33-45); HEMOGLOBIN 10.8 g/dL (11.5-14.8); LYMPHOCYTES # (AUTO) 1.1 /CMM (0.8-4.8); LYMPHOCYTES % (AUTO) 16.3 % (20.0-44.0); MEAN CORPUSCULAR HEMOGLOBIN 29 PG (26.0-33.0); MEAN CORPUSCULAR HGB CONC 31 g/dl (31.0-36.0); MEAN CORPUSCULAR VOLUME 91 fL (82-100); MONOCYTES # (AUTO) 0.5 /CMM (0.1-1.30); MONOCYTES % (AUTO) 7.6 % (2.0-12.0); NEUTROPHILS % (AUTO) 73.3 % (43.0-81.0); PLATELET COUNT (AUTO) 289 /CMM (150-450); RDW COEFFICIENT OF VARIATION 16.3 (11.5-15.0); RED BLOOD CELL COUNT(AUTO) 3.81 MIL/uL (4.0-5.2); WHITE BLOOD COUNT (AUTO) 6.9 K/uL (4.3-11.0)
--- NOTE | 2017-01-13 23:55 | NUR ---
PT CIARA FROM HOME. PTS FAMILY C/O BIZZARE BEHAVIOR AT HOME, STATING SHE WAS YELLING AND THROWING THINGS. THEY CALLED THE PT'S PCP AND MADE AWARE, THE HOME HEALTH NURSE GAVE THE PT HALDOL 5 MG IM. AFTERWARDS THE PT BECAME VERY PASSIVE WITH BLANK STARES AND STOPPED TALKING. VITALS WNL. O2 SAT IN 80s, PLACED ON NC 4LPM. BLOOD GLUCOSE 134 MG/DL. FENTANYL PATCH WAS PRESENT ON PT AND WAS REMOVED.
[2017-01-14 00:06] LABS: CALCIUM, SERUM 10.1 mg/dL (8.5-10.1); CARBON DIOXIDE 26 mmol/L (21-32); CHLORIDE 107 mmol/L (98-107); GLUCOSE 137 mg/dL (74-106); POTASSIUM 4.4 mmol/L (3.5-5.1); SODIUM SERUM 139 mmol/L (136-145); UREA NITROGEN, BLOOD 54 mg/dL (7-18)
[2017-01-14 00:07] LABS: INR 0.98 (0.87-1.13); PROTHROMBIN TIME 10.2 SECS (9.5-12.7)
[2017-01-14 00:12] LABS: ALANINE AMINOTRANSFERASE 28 U/L (12-78); ALBUMIN 3.1 g/dL (3.4-5.0); ALCOHOL, BLOOD < 3 mg/dL (0-0); ALKALINE PHOSPHATASE 94 U/L (46-116); ASPARTATE AMINOTRANSFERASE 33 U/L (15-37); BILIRUBIN,DIRECT 0.1 mg/dL (0.0-0.2); BILIRUBIN,TOTAL 0.4 mg/dL (0.2-1.0); TOTAL PROTEIN, SERUM 7.6 g/dL (6.4-8.2); TROPONIN I 0.022 ng/mL (0.00-0.056)
[2017-01-14 00:13] LABS: ACETAMINOPHEN 0 ug/ml (10-30)
--- NOTE | 2017-01-14 00:26 | NUR ---
PT IS NOW MORE ALERT THAN BEFORE. REMAINS WITH SLIGHT DELAY IN SPEECH BUT ABLE TO ANSWER QUESTIONS CORRECTLY AND FOLLOW COMMANDS.
[2017-01-14 00:41] LABS: APPEARANCE,URINE CLEAR (CLEAR); BILIRUBIN,URINE NEGATIVE (NEGATIVE); BLOOD, URINE NEGATIVE Ery/uL (NEGATIVE); KETONES,URINE NEGATIVE (NEGATIVE); LEUKOCYTE ESTERASE ,URINE NEGATIVE (NEGATIVE); NITRITE, URINE NEGATIVE (NEGATIVE); PH,URINE 5.5 (5.0-8.0); PROTEIN,URINE NEGATIVE (NEGATIVE); UGLUCOSE NEGATIVE (NEGATIVE); UROBILINOGEN,URINE 0.2 EU/dL (0.2)
[2017-01-14 00:42] LABS: COLOR,URINE DARK YELLOW (YELLOW)
--- NOTE | 2017-01-14 01:24 | NUR ---
M/S 309-1
[2017-01-14 01:55] VITALS: BP 156/60
[2017-01-14] MEDS ORDERED: Z GUARD REMEDY 2 OZ OINT TP PRN (02:00)
[2017-01-14] MEDS ORDERED: LORAZEPAM 1 MG TABLET PO PRN (02:00)
[2017-01-14] MEDS ORDERED: ONDANSETRON HCL/PF 4 MG/2 ML VIAL IVP PRN (02:00)
[2017-01-14] MEDS ORDERED: MAG HYDROX/AL HYDROX/SIMETH 30 ML UDC PO PRN (02:00)
[2017-01-14] MEDS ORDERED: ACETAMINOPHEN 325 MG TABLET PO PRN (02:00)
[2017-01-14] MEDS ORDERED: HYDROCODONE/APAP 5/325MG 1 EACH TABLET PO PRN (02:00)
[2017-01-14] MEDS ORDERED: ALPRAZOLAM 0.25 MG TABLET PO PRN (02:00)
--- NOTE | 2017-01-14 02:00 | NUR ---
MS/RN OPENING NOTES PT RECEIVED FROM ER, ACCOMPANIED BY DAUGHTER. PT PLACED ON 4L O2 VIA NC, BREATHING EVEN AND UNLABORED. NO APPARENT DISTRESS NOTED. NO FACIAL GRIMACING OR SIGNS OF PAIN. PT IS A/OX1. IRANIAN SPEAKING ONLY. IV TO LAC PATENT AND INTACT. BED IN LOW/LOCKED POSITION, SIDE RAILS UPX3 AND BED ALARM ON. CALL LIGHT IN REACH. BRIAN (DAUGHTER)-[phone]. WILL CONTINUE TO MONITOR.
[2017-01-14 02:08] VITALS: BP 156/60
[2017-01-14] MEDS: IV NS 0.9% 1,000 ML IV PRN ×2 (02:10→17:31)
--- NOTE | 2017-01-14 06:00 | NUR ---
PT MOVED FROM ROOM 309-1 TO 326-2
[2017-01-14] MEDS ORDERED: IPRATROPIUM NEB FS 0.5 MG/2.5 ML AMPUL.NEB NEB PRN (07:30)
--- NOTE | 2017-01-14 07:35 | NUR ---
MS/RN CLOSING NOTES PT AWAKE, SITTING UP IN BED HIGH FOWLERS POSITION. A/OX1, RWANDAN SPEAKING. ON 4L O2 VIA NC, BREATHING EVEN AND UNLABORED AT THIS TIME. SOB ON MINIMAL EXERTION. IV TO LFA PATENT AND INTACT RUNNING IVF ORDERED. NO SIGNIFICANT CHANGES OVERNIGHT. BED IN LOW/LOCKED POSITION WITH CALL LIGHT IN REACH. SIDE RAILS UPX3 AND BED ALARM ON FOR SAFETY. MADE PT COMFORTABLE DURING SHIFT. ENDORSED TO AM SHIFT ADITHYA.
--- NOTE | 2017-01-14 08:00 | NUR ---
MS RN NOTES PATIENT ALERT, ORIENTED X1-2 [place] CITIZEN SPEAKING. ON OXYGEN VIA NASAL CANULA. PERIPHERAL IV INTACT, PATENT. SITTER AT BEDSIDE. BED IN LOW LOCKED POSITION. CALL LIGHT WITHIN REACH. WILL CONTINUE TO MONITOR.
[2017-01-14] MEDS: DILTIAZEM HCL CD 240 MG PO SCH (08:39)
[2017-01-14] MEDS ORDERED: FUROSEMIDE 20 MG TABLET PO SCH (09:00)
--- NOTE | 2017-01-14 11:30 | NUR ---
MS RN NOTES PATIENTS DAUGHTER REPORTS PATIENT TAKES FENTANYL 50MCG Q72 HOURS AT HOME AND IT WAS REMOVED IN THE ER, PATCH LAST WAS PLACED MORE THEN 2 DAYS AGO, TELEPHONE CONSENT OBTAINED TO CONTINUE WITH FENTANYL FROM DR. AGUILAR AND PSYCH CONSULT WITH DR. LOPEZ ORDER NOTED AND CARRIED OUT.
[2017-01-14] MEDS ORDERED: FENTANYL TD PATCH (50 MCG/HR) 50 MCG/HR PATCH.TD72 TD SCH (12:52)
--- NOTE | 2017-01-14 13:00 | NUR ---
MS RN NOTES PATIENT SEEN AND EVALUATED BY DR. LOPEZ ORDERS NOTED AND CARRIED OUT.
[2017-01-14] MEDS: MAGNESIUM HYDROXIDE 30 ML UDC PO PRN (15:07)
[2017-01-14 16:00] VITALS: BP 139/79
[2017-01-14] MEDS ORDERED: BISACODYL SUPP (10 MG) 10 MG/SUPP.RECT SUPP.RECT RC PRN (16:00)
[2017-01-14] MEDS: risperiDONE 0.25 MG TABLET PO SCH ×2 (16:48→21:08)
[2017-01-14] MEDS ORDERED: QUETIAPINE FUMARATE 25 MG TABLET PO SCH (17:00)
--- NOTE | 2017-01-14 18:48 | NUR ---
MS RN NOTES PATIENT IN BED RESTING NO SOB OR ACUTE DISTRESS NOTED. PATIENT ALERT, ORIENTED X1. PATIENT WAS CONSTIPATED ADMINISTERED SUPPOSITORY AND MILK OF MAG. NOTED WITH BMX3. PATIENT DENIES ANY PAIN. ALL DUE MEDICATIONS ADMINISTERED. ALL NEEDS MET. PERIPHERAL IV INTACT PATENT ON RIGHT FOREARM. WILL ENDORSE TO PM SHIFT ADITHYA
--- NOTE | 2017-01-14 18:54 | NUR ---
MS RN NOTES PATIENTS DAUGHTER STATES PATIENT HAS NOT BEEN TAKING LEXAPRO FOR 1 MONTH ALREADY INSTEAD SHE WAS TAKING LORAZEPAM 1MG TWICE DAILY. DR LOPEZ NOTIFIED ORDERS TO D/C LEXAPRO.
--- NOTE | 2017-01-14 19:40 | NUR ---
MS RN OPENING NOTES RECEIVED PATIENT RESTING IN BED WITH EYES CLOSED, CALM/RELAXED, A & O X 1. NO S/S OF PAIN, NO SOB, NO ACUTE DISTRESS NOTED. ON O2 @ 4 LPM, RESP EVEN & NON LABORED. IV ACCESS TO RFA, INTACT PATENT, RUNNING WITH NS @ 75 ML/HR. ON 1:1 SITTER FOR SAFETY DUE TO CONFUSION. ALL OTHER SAFETY MEASURES IN PLACE. BED IN LOW LOCKED POSITION. CALL LIGHT WITHIN REACH. WILL OBSERVE CLOSELY.
[2017-01-14 20:00] VITALS: BP 137/77
[2017-01-14] MEDS: DOCUSATE SODIUM 250 MG CAPSULE PO SCH (21:08)
[2017-01-14] MEDS ORDERED: ESCITALOPRAM OXALATE (10 MG) 10 MG TABLET PO SCH ×2 (22:00)
[2017-01-15] MEDS: IV NS 0.9% 1,000 ML IV PRN (06:33)
--- NOTE | 2017-01-15 06:42 | NUR ---
MS RN CLOSING NOTES PATIENT SLEPT INTERMITTENTLY @ NIGHT. A & O X 1 DUE TO HX OF DEMENTIA. NO C/O PAIN, NO ACUTE DISTRESS NOTED. HAD EPISODE OF SOB WHILE USED BSC ( ON EXERTION ). BREATHING TREATMENT GIVEN & WAS EFFECTIVE. ABLE TO MAKE NEEDS KNOWN. IV ACCESS TO RFA, INTACT PATENT RUNNING WITH NS @ 75 ML/HR. ASSISTED WITH ADL CARE & ALL NEEDS MET. BED ALARM ON & IN LOW LOCKED POSITION, CALL LIGHT WITHIN REACH. WILL ENDORSE TO AM RN FOR CONTINUITY OF CARE
[2017-01-15 06:49] LABS: BASOPHILS % (AUTO) 0.3 % (0.0-2.0); EOSINOPHILS # (AUTO) 0.2 /CMM (0.0-0.7); EOSINOPHILS % (AUTO) 3.7 % (0.0-6.0); HEMATOCRIT 33 % (33-45); HEMOGLOBIN 10.6 g/dL (11.5-14.8); LYMPHOCYTES # (AUTO) 0.9 /CMM (0.8-4.8); LYMPHOCYTES % (AUTO) 15.1 % (20.0-44.0); MEAN CORPUSCULAR HEMOGLOBIN 29 PG (26.0-33.0); MEAN CORPUSCULAR HGB CONC 32 g/dl (31.0-36.0); MEAN CORPUSCULAR VOLUME 91 fL (82-100); MONOCYTES # (AUTO) 0.5 /CMM (0.1-1.30); MONOCYTES % (AUTO) 8.4 % (2.0-12.0); NEUTROPHILS # (AUTO) 4.6 /CMM (1.8-8.9); NEUTROPHILS % (AUTO) 72.5 % (43.0-81.0); PLATELET COUNT (AUTO) 249 /CMM (150-450); RDW COEFFICIENT OF VARIATION 15.2 (11.5-15.0); RED BLOOD CELL COUNT(AUTO) 3.65 MIL/uL (4.0-5.2); WHITE BLOOD COUNT (AUTO) 6.2 K/uL (4.3-11.0)
[2017-01-15 06:52] LABS: CALCIUM, SERUM 9.7 mg/dL (8.5-10.1); CARBON DIOXIDE 26 mmol/L (21-32); CHLORIDE 112 mmol/L (98-107); CREATININE 1.2 mg/dL (0.6-1.3); GLUCOSE 115 mg/dL (74-106); MAGNESIUM 1.9 mg/dL (1.8-2.4); PHOSPHORUS 3.6 mg/dL (2.5-4.9); POTASSIUM 4.4 mmol/L (3.5-5.1); SODIUM SERUM 146 mmol/L (136-145); UREA NITROGEN, BLOOD 37 mg/dL (7-18)
--- NOTE | 2017-01-15 07:00 | NUR ---
RN NOTES INITIAL: PATIENT RESTIN IN BED. NO SIGNS OF DISTRESS NOTED. NONLABORED BREATHING ON 3 L NASAL CANNULA. IV SITE PATENT AND INTACT. NO FACIAL GRIMACING NOTED. PATIENTS FACIAL EXPRESSIONS INDICATE CALMNESS. SITTER AT BEDSIDE. WILL CONTINUE TO MONITOR. BED IN LOWEST LOCKED POSITION.CALL LIGHT WITHIN REACH
[2017-01-15 07:32] LABS: CHOLESTEROL 230 mg/dL (<200); HDL CHOLESTEROL 46 mg/dL (40-60); LDL 151 mg/dL (0-99); TRIGLYCERIDES 150 mg/dL (30-150)
[2017-01-15 08:00] VITALS: BP 174/89
--- NOTE | 2017-01-15 08:57 | NUR ---
RN NOTES: SPOKE WITH DAUGHTER BARBARA, WHO EXPRESSED HER WISH FOR THE PATIENT TO BE DNR/DNI. BENEFITS AND RISKS EXPLAINED IN LENGTH. DAUGHTER VERBALIZED UNDERSTANDING. CODE STATUS ORDERED AND COSIGNED WITH CHARGE NURSE DOMINGO
[2017-01-15] MEDS: risperiDONE 0.25 MG TABLET PO SCH ×3 (09:00→21:00)
[2017-01-15] MEDS: DILTIAZEM HCL CD 240 MG PO SCH (09:00)
[2017-01-15] MEDS: LORAZEPAM 1 MG TABLET PO SCH ×2 (09:00→16:34)
[2017-01-15 11:00] VITALS: BP 154/72
--- NOTE | 2017-01-15 11:36 | NUR ---
RN NOTES: MORNING MEDICATIONS OFFERED TWICE TO PATIENT, CRUSHED AND PUT IN APPLE SAUCE. PATIENT GOT AGITATED FIRST TIME AND REFUSED MEDICATION. BENEFITS AND RISKS EXPLAINED TO PATIENT, A STAFF TRANSLATED TO THE PATIENT. PATIENT STILL REFUSED, MEDICATIONS WASTED. PATIENT HELPED TO SIT IN BED, NONLABORED BREATHING NOTED, NO SIGNS OF DISTRESS NOTED. SPOKE TO DAUGHTER AND SHE STATED THAT SHE IS AWARE THAT HER MOTHER REFUSES HER MEDICATIONS. MORNING MEDICATIONS OFFERED AGAIN. DAUGHTER WAS ON THE PHONE EXPLAINING TO THE PATIENTS THE BENEFITS AND RISKS. PATIENT REFUSED MULTIPLE TIMES, BENEFITS AND RISKS EXPLAINED AGAIN, PATIENT REFUSED, STATING THAT SHE WANTS TO BE LEFT ALONE. MEDICATIONS WASTED, SITTER AT SITE BLOOD PRESSURE REASSESSED AT 1100 AND IT HAS DECREASED, PATIENT'S FACIAL EXPRESSIONS INDICATE CALMNESS. NONLABORED BREATHING NOTED WILL CONTINUE TO MONITOR PATIENT
[2017-01-15] MEDS ORDERED: IV 1/2NS 1000 ML 1,000 ML IV PRN (14:00)
[2017-01-15 16:00] VITALS: BP 187/77
[2017-01-15] MEDS: BENZTROPINE MESYLATE (1 MG) 1 MG TABLET PO SCH ×2 (16:35→17:00)
[2017-01-15] MEDS: hydrALAZINE HCL 25 MG TABLET PO PRN (18:13)
--- NOTE | 2017-01-15 19:30 | NUR ---
RN NOTES CLOSING: PATIENT RESTING IN BED. NO SIGNS OF DISTRESS NOTED. PATIENT ALERT ORIENTED X1, CONFUSED. DURING SHIFT, PATIENT REFUSED IV FLUIDS AND ATTEMPTED TO REMOVE IV. IV CURRENTLY PATENT AND INTACT. PATIENT REFUSED ALL PO MEDICATIONS IN THE MORNING WELL SOME IN THE AFTERNOON. PATIENT AGREED TO TAKE ATIVAN 1MG WELL PRN HYDRALAZINE. BP REASSESSED NOW AND NOTED TO BE 138/57. PATIENT AGITATED WHEN OFFERED MEDICATIONS. MEDICATIONS OFFERED TO PATIENT MULTIPLE TIMES.SPOKE TO DAUGHTER AND HAD THE DAUGHTER EXPLAIN THE BENEFITS AND RISKS OF IT. PATIENT KEPT REFUSING. DR LOPEZ AND DR JAMES ZARAGOZA AWARE OF THIS. DURING SHIFT, PATIENT KEPT CLEAN AND DRY. BED IN LOWEST LOCKED POSITION.CALL LIGHT WITHIN REACH. SITTER AT BESIDE. ENDORSED TO NEXT SHIFT. DURING SHIFT, 3 ATIVAN (1 MG) WASTED. MEDICATIONS WERE CRUSHED AND PUT IN APPLESAUCE FOR EASIER SWALLOWING. PATIENT REFUSED. MEDICATIONS WASTED WITH WITNESS. SPOKE TO PHARMACY ABOUT IT WELL
[2017-01-15 20:00] VITALS: BP 134/72
--- NOTE | 2017-01-15 20:00 | NUR ---
MS KNAPSACK SPRAYER INITIAL NOTES SEEN PT IN BED RESTING WITH EYES CLOSED , BREATHING EVEN AND NON-LABORED , NOT IN ANY ACUTE DISTRESS NOTED KEPT HER WARM AND COMFORTABLE AT ALL TIMES. SITTER AT THE BEDSIDE FOR SAFETY. WILL CONTINUE TO MONITOR. PLACE CALL LIGHT AT REACH.
[2017-01-15 22:00] VITALS: BP 138/51
--- NOTE | 2017-01-15 22:00 | NUR ---
BREAKER TABLE WORKER/NOTES PT REMAINS RESTING COMFORTABLY IN BED WITHOUT ANY ACUTE DISTRESS NOTED.
[2017-01-16] MEDS: DOCUSATE SODIUM 250 MG CAPSULE PO SCH ×2 (01:20→01:30)
[2017-01-16] MEDS: ZOLPIDEM TARTRATE 5 MG TABLET PO PRN ×2 (01:20→01:29)
[2017-01-16] MEDS: risperiDONE 0.25 MG TABLET PO SCH ×3 (01:21→14:34)
--- NOTE | 2017-01-16 01:30 | NUR ---
ASSISTANT PROFESSOR OF ECONOMICS/NOTES PT WOKE UP AND SEEN SITTING IN THE CHAIR , ASKED HER IF SHE WILL TAKE HER MEDICATION SHE STATED"OK". THEN BY THE TIME I ALREADY OPEN THE MEDICATION AND TELLING HER THE PURPOSE OF HER MEDICATION SHE REFUSED TO TAKE IT AND SHE STATED "SHE DOESN'T WANT ANY THING ONLY SHE WANTS TO GO HOME. NO AGITATION AT THIS TIME BUT NOTICED SHE TALKED SO LOUD . OFFERED SOME LIGHT SNACKS AND SITTER AT THE BEDSIDE FOR SAFETY. WILL CONTINUE TO MONITOR.
[2017-01-16] MEDS ORDERED: HALOPERIDOL LACTATE INJ 5 MG/ML VIAL ONE (03:29)
[2017-01-16] MEDS ORDERED: HALOPERIDOL LACTATE INJ 5 MG/ML VIAL IM ONE (03:30)
--- NOTE | 2017-01-16 03:53 | NUR ---
MS CARRY OUT CLERK AND SHELF STOCKER NOTES PT SO AGITATED, SCREAMING, OUTBURST ,PULLING HER IV LINE , HALDOL 1MG GIVEN WENDI IM ORDERED. NO SIGNS OF ANY ACUTE DISTRESS NOTED. WITH O2 AT 3 LITERS VIA NASAL CANULA. WILL CONTINUE TO MONITOR. SITTER AT THE BEDSIDE FOR SAFETY.
--- NOTE | 2017-01-16 05:15 | NUR ---
CHIMNEY REPAIRER/NOTES PT IN HER ROOM SITTING INSIDE HER BED STILL AWAKE BUT CALMED DOWN AT THIS MOMENT, TRIED TO RE-ORIENTED WHERE SHE AT , BREATHING EVEN AND NON-LABORED, STILL REFUSING IV LINE INSERTION AND NOTICED PATIENT ALWAYS SAYING "WILL I TODAY ". TALKED TO HER AND SAYING SOME POSITIVE WORD THEN NOTICED SHE STARTED PRAYING. KEPT HER WARM AND COMFORTABLE AT ALL TIMES. SITTER REMAIN AT THE BEDSIDE FOR SAFETY.
[2017-01-16 06:32] LABS: BASOPHILS % (AUTO) 0.3 % (0.0-2.0); EOSINOPHILS # (AUTO) 0.1 /CMM (0.0-0.7); EOSINOPHILS % (AUTO) 1.5 % (0.0-6.0); HEMATOCRIT 34 % (33-45); HEMOGLOBIN 10.9 g/dL (11.5-14.8); LYMPHOCYTES % (AUTO) 14.8 % (20.0-44.0); MEAN CORPUSCULAR HEMOGLOBIN 29 PG (26.0-33.0); MEAN CORPUSCULAR HGB CONC 32 g/dl (31.0-36.0); MEAN CORPUSCULAR VOLUME 90 fL (82-100); MONOCYTES # (AUTO) 0.5 /CMM (0.1-1.30); MONOCYTES % (AUTO) 7.7 % (2.0-12.0); NEUTROPHILS # (AUTO) 5.2 /CMM (1.8-8.9); NEUTROPHILS % (AUTO) 75.7 % (43.0-81.0); PLATELET COUNT (AUTO) 259 /CMM (150-450); RDW COEFFICIENT OF VARIATION 16.1 (11.5-15.0); RED BLOOD CELL COUNT(AUTO) 3.74 MIL/uL (4.0-5.2); WHITE BLOOD COUNT (AUTO) 6.9 K/uL (4.3-11.0)
[2017-01-16 06:53] LABS: CALCIUM, SERUM 10.2 mg/dL (8.5-10.1); CARBON DIOXIDE 28 mmol/L (21-32); CHLORIDE 110 mmol/L (98-107); CREATININE 1.1 mg/dL (0.6-1.3); GLUCOSE 129 mg/dL (74-106); MAGNESIUM 1.8 mg/dL (1.8-2.4); PHOSPHORUS 3.2 mg/dL (2.5-4.9); POTASSIUM 4.4 mmol/L (3.5-5.1); SODIUM SERUM 146 mmol/L (136-145); UREA NITROGEN, BLOOD 28 mg/dL (7-18)
--- NOTE | 2017-01-16 07:05 | NUR ---
RN NOTES: PATIENT SITTING IN BED. NONLABORED BREATHING NOTED ON 3L NASAL CANNULA. NO SIGNS OF DISTRESS NOTED. PATIENT PULLED OUT HER IV LINE DURING PREVIOUS SHIFT, PATIENT REFUSING ANOTHER IV TO BE REINSERTED. NO FACIAL GRIMACES NOTED. PATIENT'S FACIAL EXPRESSIONS INDICATE CALMNESS. SITTER AT BEDISIDE. CALL LIGHT WITHIN REACH. WILL CONTINUE TO MONITOR
--- NOTE | 2017-01-16 07:21 | NUR ---
MS BUSINESS MANAGEMENT MANAGER CLOSING NOTES PT SITTING ON THE CHAIR AT THIS TIME WITHOUT ANY ACUTE DISTRESS NOTED STILL WITH O2 AT 3 LITERS VIA NC. NO SOB NOTED. STILL REFUSING TO RE-INSERT HER IV LINE AND INFUSING IVF. REMAINS CALMED AT THIS TIME AFTER HALDOL GIVEN. STABLE WENDI THE NIGHT EXCEPT THE CONFUSION AND AGITATION. KEPT HER WARM AND COMFORTABLE AT ALL TIMES. SITTER AT THE BEDSIDE FOR SAFETY. ENDORSE TO AM NURSE FOR CONTINUITY OF CARE.
[2017-01-16 08:00] VITALS: BP 168/90
[2017-01-16] MEDS: BENZTROPINE MESYLATE (1 MG) 1 MG TABLET PO SCH (09:00)
[2017-01-16] MEDS: DILTIAZEM HCL CD 240 MG PO SCH (09:00)
[2017-01-16] MEDS: LORAZEPAM 1 MG TABLET PO SCH ×2 (09:00→16:21)
[2017-01-16 12:59] VITALS: BP 172/68
[2017-01-16] MEDS: hydrALAZINE HCL 25 MG TABLET PO PRN (12:59)
[2017-01-16] MEDS: MAGNESIUM HYDROXIDE 30 ML UDC PO PRN (14:00)
--- NOTE | 2017-01-16 14:01 | NUR ---
RN NOTES: PATIENT COMPLAINING OF CONSTIPATION. PATIENT HAS NOT HAD A BOWEL MOVEMENT SINCE YESTERDAY. MILK OF MAGNESIA GIVEN PER ORDERS
--- NOTE | 2017-01-16 16:51 | NUR ---
RN NOTES: PATIENT REFUSED MORNING MEDICATIONS, HYDRALAZINE OFFERED AND PATIENT GOT AGITATED AND THREW MEDICATION ON THE FLOOR. HYDRALAZINE WASTED. PATIENT REFUSED ALL HER OTHER MEDICATIONS. BP LEVELS REPORTED TO YAQUELIN COSTELLO NP
--- NOTE | 2017-01-16 17:26 | NUR ---
RN NOTES: PATIENT DISCHARGED TO [facility]ER[facility] UNIT PER YAQUELIN COSTELLO, GLASS PULVERIZER EQUIPMENT OPERATOR ORDERS. PATIENT STABLE. NONLABORED BREATHING ON ROOM AIR. PATIENT SPO2 BEEN WNL ON ROOM AIR TODAY. PRAVIN AWARE OF BP READINGS. NO IV LINE ON PATIENT. NO FACIAL GRIMACING NOTED. PATIENT AGREED TO TAKE HER ATIVAN. HOWEVER, REFUSED COGENTIN. PATIENT HAD 1 BOWEL MOVEMENT SINCE THE ADMINISTRATION OF MILK OF MAGNESIA. DAUGHTER, MARCO, AWARE OF TRANSFER OF PATIENT. REPORT GIVEN TO GONZALO. PATIENT EDUCATED ON EXISTCARE. PATIENT NEEDED A LOT OF REINFORCEMEN. PATIENT REFUSED VACCINES. PATIENT REFUSED SKIN PICTURES TO BE TAKEN. BENEFITS AND RISKS EXPLAINED. PATIENT STILL REFUSED. ALL DOCUMENTS GIVEN TO GPS FLOOR INCLUDING HOLD DOCUMENTS. DAUGHTER AWARE OF HOLD WELL. VALUABLES TAKEN TO THE UNIT AND ACCOUNTED FOR.
[2017-01-17] MEDS ORDERED: FUROSEMIDE 20 MG TABLET PO SCH (09:00)
== END 2017-01-16 16:40 | DRG 682 ==
LOC: ER 23:09 → MED 01-14 01:47
PROVIDERS: ADMIT Internal Medicine; ATTEND Internal Medicine
DX: N17.0 Acute kidney failure with tubular necrosis (principal); G93.41 Metabolic encephalopathy; E43 Unspecified severe protein-calorie malnutrition; E87.0 Hyperosmolality and hypernatremia; F33.2 Major depressive disorder, recurrent severe without psychotic features; I13.0 Hypertensive heart and chronic kidney disease with heart failure and stage 1 through stage 4 chronic kidney disease, or unspecified chronic kidney disease; I50.9 Heart failure, unspecified; E86.0 Dehydration; E88.09 Other disorders of plasma-protein metabolism, not elsewhere classified; E66.01 Morbid (severe) obesity due to excess calories; D63.8 Anemia in other chronic diseases classified elsewhere; C34.90 Malignant neoplasm of unspecified part of unspecified bronchus or lung; Z68.41 Body mass index [BMI] 40.0-44.9, adult; E78.5 Hyperlipidemia, unspecified; N18.9 Chronic kidney disease, unspecified; Z87.891 Personal history of nicotine dependence; J44.9 Chronic obstructive pulmonary disease, unspecified; K21.9 Gastro-esophageal reflux disease without esophagitis; F03.90 Unspecified dementia, unspecified severity, without behavioral disturbance, psychotic disturbance, mood disturbance, and anxiety; R53.1 Weakness; F29 Unspecified psychosis not due to a substance or known physiological condition; Z73.6 Limitation of activities due to disability; Z71.3 Dietary counseling and surveillance
CPT/HCPCS: 36415; 70450-TC; 71010-TC; 80048-TC; 80061-TC; 80076-TC; 80305; 81000-TC; 82962-TC; 83735-TC; 84100-TC; 84484-TC; 85025-TC; 85730-TC; 87081-TC; A4606; G0480; J1630; J3490; J7030; Z7610

== ENCOUNTER 2017-01-16 17:08 | Inpatient (IN) | payer MEDICARE, OTHER ==
[~2017-01-16] VITALS: Ht 160 cm; Wt 98.7 kg
[2017-01-16 17:21] VITALS: BP 185/82
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
[2017-01-16] MEDS ORDERED: ACETAMINOPHEN 325 MG TABLET PO PRN (18:30)
--- NOTE | 2017-01-16 19:30 | NUR ---
RN NOTE'; RECEIVED PT SITTING ON THE CHAIR IN HER ROOM. BREATHING EVENLY. NO SOB ON RA. NO S/S OR C/O PAIN OR DISCOMFORT, NO BEHAVIORAL ISSUES NOTED. NEEDS ATTENDED. WILL CONT TO MONITOR ,
[2017-01-16 20:00] VITALS: BP 177/74
[2017-01-16 20:39] VITALS: BP 177/74
--- NOTE | 2017-01-16 21:00 | NUR ---
PAGED DR. MENDOSA AND SPOKE TO HIM OVER THE PHONE REGARDING PT'S HIGH BP:177/75. ALSO ASKED MD FOR MED RECON. PER MD HE WILL REVIEW THE PT'S FILE AND WILL DO THE MED RECON.
[2017-01-17] MEDS ORDERED: hydrALAZINE HCL 25 MG TABLET ONE ×2 (05:06→06:00)
[2017-01-17] MEDS: hydrALAZINE HCL 25 MG TABLET PO SCH ×3 (06:01→21:00)
--- NOTE | 2017-01-17 06:01 | NUR ---
GPS RN NOTE, PATIENT HAS HYDRALAZINE 25MG ORDERED, OVERRIDDEN HYDRALAZINE 25MG IN THE OMNICELL BUT WRONG MEDICATION LOADED IN BIN 81 PULLED OUT HYDROCHLOROTHIAZIDE 25 MG OUT OF BIN 81 INSTEAD. RETURNED HYDROCHLOROTHIAZIDE TO RETURN BIN. PULLED OUT HYDRALAZINE 25MG FOR FLOOR RN AND IT WAS GIVEN ORDERED. WILL CONTINUE TO MONITOR THIS PATIENT.
--- NOTE | 2017-01-17 06:28 | NUR ---
RN NOTE; PT IN HIS ROOM. AWAKE AND ALERT. NO ACUTE EVENT DURING THE THE NIGHT. NO COMBATIVE BEHAVIOR. ON ONGOING OBSERVATION FOR SAFETY AND FALL RISK. MEDICATED ORDERED. NEEDS ATTENDED . WILL CONT TO MONITOR AND WILL ENDORSE TO AM SHIFT FOR ADITHYA .
[2017-01-17 07:23] LABS: CHOLESTEROL 236 mg/dL (<200); HDL CHOLESTEROL 51 mg/dL (40-60); LDL 148 mg/dL (0-99); TRIGLYCERIDES 130 mg/dL (30-150)
[2017-01-17 07:33] LABS: ALANINE AMINOTRANSFERASE 29 U/L (12-78); ALBUMIN 3.2 g/dL (3.4-5.0); ALKALINE PHOSPHATASE 99 U/L (46-116); ASPARTATE AMINOTRANSFERASE 34 U/L (15-37); BILIRUBIN,TOTAL 0.5 mg/dL (0.2-1.0); CALCIUM, SERUM 10.1 mg/dL (8.5-10.1); CARBON DIOXIDE 27 mmol/L (21-32); CHLORIDE 109 mmol/L (98-107); CREATININE 1.1 mg/dL (0.6-1.3); GLUCOSE 136 mg/dL (74-106); POTASSIUM 4.3 mmol/L (3.5-5.1); SODIUM SERUM 145 mmol/L (136-145); TOTAL PROTEIN, SERUM 7.5 g/dL (6.4-8.2); UREA NITROGEN, BLOOD 21 mg/dL (7-18)
[2017-01-17] MEDS: NATEGLINIDE 60 MG TABLET PO SCH ×3 (08:54→16:55)
[2017-01-17] MEDS: ALLOPURINOL 100 MG TABLET PO SCH (08:54)
[2017-01-17] MEDS: FUROSEMIDE 20 MG TABLET PO SCH (08:54)
[2017-01-17] MEDS ORDERED: IPRATROPIUM NEB FS 0.5 MG/2.5 ML AMPUL.NEB NEB PRN ×2 (09:00)
[2017-01-17] MEDS: DILTIAZEM HCL CD 240 MG PO SCH (10:10)
--- NOTE | 2017-01-17 11:09 | NUR ---
WOUND CARE CONSULT PATIENT SEEN AND SKIN INTEGRITY ASSESSMENT DONE. PATIENT WITH DUSTIN 18, CONTINENT AND AMBULATORY WITH WALKER. UP IN CHAIR AT THIS TIME. SEE CLAIMS ACCOUNT SPECIALIST ASSESSMENT IN PCS FOR TODAY. THE RIGHT ARMPIT REGION IS NOTED TO HAVE SCARRING FROM A PREVIOUS MASTECTOMY SURGERY, NO TREATMENT NEEDED AT THIS TIME. THIS WAS NOT A PIMPLE. ALL DISCUSSED WITH NURSING AT THE BEDSIDE. Addendum: 01/17/17 at 1111 by RAMAKRISHNA HIGUERA WNDNU Amended: Links added.
--- NOTE | 2017-01-17 11:20 | NUR ---
GPS/RN PATIENT REQUESTED BREATHING TREATMENT, RT NOTIFIED AND IS ON UNIT TO ADMINISTER TREATMENT. NO ACUTE DISTRESS NOTED AT THIS TIME, WILL CONTINUE TO MONITOR.
--- NOTE | 2017-01-17 12:11 | NUR ---
GPS/RN PATIENT IS UNABLE TO PROVIDE INFORMATION ON WHAT DAY OF WEEK SHE IS TAKING DRISDOL AND UNABLE TO RECALL WHEN THE LAST DAY SHE HAD THE FENTANYL PATCH, WILL FOLLOW UP WITH FAMILY.
[2017-01-17] MEDS: BENZTROPINE MESYLATE (1 MG) 1 MG TABLET PO SCH ×2 (13:31→16:55)
[2017-01-17 16:00] VITALS: BP 140/59
[2017-01-17] MEDS: risperiDONE 0.25 MG TABLET PO SCH ×2 (16:55→21:12)
[2017-01-17] MEDS: IPRATROPIUM NEB FS 0.5 MG/2.5 ML AMPUL.NEB NEB PRN (17:17)
[2017-01-17] MEDS: ONDANSETRON 4 MG TAB.RAPDIS PO PRN (17:48)
--- NOTE | 2017-01-17 17:54 | NUR ---
GPS/RN PATIENT REPORTS NAUSEA WITH NO VOMITING, ADMINISTERED ZOFRAN 4 MG ORDERED, WILL CONTINUE TO MONITOR .
[2017-01-17 20:00] VITALS: BP 114/53
[2017-01-17] MEDS: FENTANYL TD PATCH (50 MCG/HR) 50 MCG/HR PATCH.TD72 TD SCH (21:13)
[2017-01-18] MEDS: hydrALAZINE HCL 25 MG TABLET PO SCH ×3 (05:00→22:15)
[2017-01-18] MEDS: DILTIAZEM HCL CD 240 MG PO SCH (08:23)
[2017-01-18] MEDS: FUROSEMIDE 20 MG TABLET PO SCH (08:23)
[2017-01-18] MEDS: BENZTROPINE MESYLATE (1 MG) 1 MG TABLET PO SCH ×2 (08:23→17:38)
[2017-01-18 08:24] VITALS: BP 141/61
[2017-01-18] MEDS: risperiDONE 0.25 MG TABLET PO SCH ×2 (08:24→22:15)
[2017-01-18] MEDS: ALLOPURINOL 100 MG TABLET PO SCH (08:25)
[2017-01-18] MEDS: NATEGLINIDE 60 MG TABLET PO SCH ×3 (08:25→17:38)
--- NOTE | 2017-01-18 15:23 | NUR ---
Initial Discharge Note: Patient lives at [address] [address] / [phone] and wishes to return. MEDINA spoke with pt's daughter, Madison [phone]. Madison stated that the family is going back and forth between a nursing facility and having patient return home. Madison stated that it seems that patient is doing better and perhaps it would be best for her to be home with her family. MEDINA will follow up with MD and will work to arrange a safe and proper discharge.
[2017-01-18 16:15] VITALS: BP 144/70
--- NOTE | 2017-01-18 19:14 | NUR ---
RN NOTES VERIFIED WITH BRIAN BOND (ALEX)SIMON REQUESTING FOR DNR/DNI. CONFIRMED AND VERIFIED. DISCUSSED WITH PRODUCT MANAGER E [employer] YAQUELIN AND YAQUELIN WILL PLACE ORDERS.
[2017-01-18 20:00] VITALS: BP 125/53
--- NOTE | 2017-01-19 00:25 | NUR ---
GPS RN NOTES: PATIENT C/O SOB, PT IS ALERT, ORIENTED X3. VITAL SIGNS ARE STABLE. O2 SATURATION @ 92%. PATIENT IS REQUESTING FOR OXYGEN ORDER. PT HAS AN ORDER FOR ATROVENT PRN AND OFFERED TO PT. BUT SHE REFUSED. PROGRAM ASSOCIATE YAQUELIN COSTELLO MADE AWARE WITH NEW ORDERS NOTED AND CARRIED OUT. PATIENT IS STABLE AT THIS TIME O2 SATURATION WENT UP TO 97%. WILL CONTINUE TO MONITOR.
[2017-01-19] MEDS: hydrALAZINE HCL 25 MG TABLET PO SCH ×3 (05:11→20:35)
[2017-01-19 08:29] VITALS: BP 146/66
[2017-01-19] MEDS: ALLOPURINOL 100 MG TABLET PO SCH (08:51)
[2017-01-19] MEDS: FUROSEMIDE 20 MG TABLET PO SCH (08:51)
[2017-01-19] MEDS: BENZTROPINE MESYLATE (1 MG) 1 MG TABLET PO SCH ×2 (08:51→16:35)
[2017-01-19] MEDS: risperiDONE 0.25 MG TABLET PO SCH ×2 (08:51→20:33)
[2017-01-19] MEDS: NATEGLINIDE 60 MG TABLET PO SCH ×3 (08:51→16:35)
[2017-01-19] MEDS: DILTIAZEM HCL CD 240 MG PO SCH (08:52)
[2017-01-19 12:58] VITALS: BP 147/61
[2017-01-19] MEDS: MAG HYDROX/AL HYDROX/SIMETH 30 ML UDC PO PRN (13:18)
[2017-01-19 16:34] VITALS: BP 131/67
[2017-01-19] MEDS: LORAZEPAM 0.5 MG TABLET PO PRN (16:36)
[2017-01-19 20:00] VITALS: BP 116/55
[2017-01-20] MEDS: hydrALAZINE HCL 25 MG TABLET PO SCH ×3 (06:12→20:25)
[2017-01-20 08:00] VITALS: BP 118/60
[2017-01-20] MEDS: NATEGLINIDE 60 MG TABLET PO SCH ×3 (08:51→16:43)
[2017-01-20] MEDS: ALLOPURINOL 100 MG TABLET PO SCH (08:51)
[2017-01-20] MEDS: BENZTROPINE MESYLATE (1 MG) 1 MG TABLET PO SCH ×2 (08:51→16:43)
[2017-01-20] MEDS: ERGOCALCIFEROL (VITAMIN D 2) 50,000 UNIT CAPSULE PO SCH (08:52)
[2017-01-20] MEDS: FUROSEMIDE 20 MG TABLET PO SCH (08:52)
[2017-01-20] MEDS: DILTIAZEM HCL CD 240 MG PO SCH (08:52)
[2017-01-20] MEDS: risperiDONE 0.25 MG TABLET PO SCH ×2 (08:52→20:26)
[2017-01-20 12:20] VITALS: BP 128/67
[2017-01-20 15:44] VITALS: BP 108/58
[2017-01-20] MEDS: MAGNESIUM HYDROXIDE 30 ML UDC PO PRN (18:49)
[2017-01-20 20:23] VITALS: BP 144/50
[2017-01-20] MEDS: FENTANYL TD PATCH (50 MCG/HR) 50 MCG/HR PATCH.TD72 TD SCH (20:30)
[2017-01-21] MEDS: hydrALAZINE HCL 25 MG TABLET PO SCH ×3 (04:57→21:50)
[2017-01-21] MEDS: FUROSEMIDE 20 MG TABLET PO SCH (08:00)
[2017-01-21] MEDS: NATEGLINIDE 60 MG TABLET PO SCH ×3 (08:00→16:10)
[2017-01-21] MEDS: ALLOPURINOL 100 MG TABLET PO SCH (08:00)
[2017-01-21] MEDS: BENZTROPINE MESYLATE (1 MG) 1 MG TABLET PO SCH ×2 (08:00→16:10)
[2017-01-21] MEDS: risperiDONE 0.25 MG TABLET PO SCH ×2 (08:00→21:51)
[2017-01-21 08:22] VITALS: BP 136/55
[2017-01-21] MEDS: DILTIAZEM HCL CD 240 MG PO SCH (08:31)
[2017-01-21 16:00] VITALS: BP 142/80
[2017-01-21] MEDS ORDERED: BISACODYL SUPP (10 MG) 10 MG/SUPP.RECT SUPP.RECT RC PRN (16:30)
[2017-01-21] MEDS: DIVALPROEX SODIUM 125 MG CAP.SPRINK PO SCH (18:40)
[2017-01-21 20:01] VITALS: BP 131/59
[2017-01-22] MEDS: hydrALAZINE HCL 25 MG TABLET PO SCH ×3 (05:55→21:15)
[2017-01-22] MEDS: BENZTROPINE MESYLATE (1 MG) 1 MG TABLET PO SCH ×2 (08:12→16:29)
[2017-01-22] MEDS: DILTIAZEM HCL CD 240 MG PO SCH (08:13)
[2017-01-22] MEDS: DIVALPROEX SODIUM 125 MG CAP.SPRINK PO SCH ×2 (08:13→16:28)
[2017-01-22] MEDS: NATEGLINIDE 60 MG TABLET PO SCH ×3 (08:13→16:29)
[2017-01-22] MEDS: FUROSEMIDE 20 MG TABLET PO SCH (08:14)
[2017-01-22] MEDS: ALLOPURINOL 100 MG TABLET PO SCH (08:14)
[2017-01-22] MEDS: risperiDONE 0.25 MG TABLET PO SCH ×2 (08:16→21:15)
[2017-01-22 08:23] VITALS: BP 135/72
[2017-01-22 16:22] VITALS: BP 145/59
[2017-01-22 19:39] VITALS: BP 145/55
[2017-01-23] MEDS: hydrALAZINE HCL 25 MG TABLET PO SCH ×3 (05:38→21:13)
[2017-01-23 08:29] VITALS: BP 120/63
[2017-01-23] MEDS: NATEGLINIDE 60 MG TABLET PO SCH ×3 (10:12→16:12)
[2017-01-23] MEDS: BENZTROPINE MESYLATE (1 MG) 1 MG TABLET PO SCH ×2 (10:12→16:11)
[2017-01-23] MEDS: FUROSEMIDE 20 MG TABLET PO SCH (10:13)
[2017-01-23] MEDS: DILTIAZEM HCL CD 240 MG PO SCH (10:13)
[2017-01-23] MEDS: risperiDONE 0.25 MG TABLET PO SCH ×2 (10:13→21:12)
[2017-01-23] MEDS: DIVALPROEX SODIUM 125 MG CAP.SPRINK PO SCH ×2 (10:13→16:11)
[2017-01-23] MEDS: ALLOPURINOL 100 MG TABLET PO SCH (10:14)
[2017-01-23] MEDS: MAGNESIUM HYDROXIDE 30 ML UDC PO PRN (14:21)
--- NOTE | 2017-01-23 14:24 | NUR ---
RN NOTES: PATIENT STATES FEELING CONSTIPATED. PATIENT STATES NOT HAVING A BOWEL MOVEMENT SINCE SATURDAY. PRUNE JUICE GIVEN TO PATIENT IN THE MORNING. MILK OF MAGNESIA ADMINISTERED NOW. WILL CONTINUE TO MONITOR. PATIENT DENIES ABDOMINAL PAIN
[2017-01-23 15:53] VITALS: BP 134/52
--- NOTE | 2017-01-23 15:58 | NUR ---
Family Update: MEDINA spoke with pt's daughter Madison [phone] on 01/21/17. Madison stated that she is unable to take her mom home because no doctor has been in contact with her. Madison stated that she had concerns about her mom. MEDINA stated that she will ask the doctor to call. MEDINA made Dr. Beard aware of this.
[2017-01-23 20:49] VITALS: BP 146/90
[2017-01-23 20:59] VITALS: BP 99/59
[2017-01-23] MEDS: FENTANYL TD PATCH (50 MCG/HR) 50 MCG/HR PATCH.TD72 TD SCH (21:14)
[2017-01-24] MEDS: hydrALAZINE HCL 25 MG TABLET PO SCH ×3 (06:13→20:46)
[2017-01-24] MEDS: IPRATROPIUM NEB FS 0.5 MG/2.5 ML AMPUL.NEB NEB PRN (07:08)
[2017-01-24] MEDS: risperiDONE 0.25 MG TABLET PO SCH ×2 (08:45→20:45)
[2017-01-24] MEDS: DIVALPROEX SODIUM 125 MG CAP.SPRINK PO SCH ×3 (08:45→16:38)
[2017-01-24] MEDS: NATEGLINIDE 60 MG TABLET PO SCH ×3 (08:46→16:38)
[2017-01-24] MEDS: BENZTROPINE MESYLATE (1 MG) 1 MG TABLET PO SCH ×2 (08:47→16:38)
[2017-01-24] MEDS: DILTIAZEM HCL CD 240 MG PO SCH (08:47)
[2017-01-24] MEDS: FUROSEMIDE 20 MG TABLET PO SCH (08:47)
[2017-01-24] MEDS: ALLOPURINOL 100 MG TABLET PO SCH (08:47)
[2017-01-24 09:29] VITALS: BP 130/75
[2017-01-24] MEDS: LORAZEPAM 0.5 MG TABLET PO PRN (10:46)
--- NOTE | 2017-01-24 10:50 | NUR ---
GPS/RN-NOTES NOTED PATIENT WITH ANXIETY UNABLE TO SIT STILL AND COMPLAINING OF SOB. CHECK O2 SATURATION WITH 98 % ROOM AIR. OFFERED ATIVAN AND AGREES. ATIVAN 1MG P.O GIVEN PRN ORDER. WILL CONT.MONITORING FOR SAFETY AND BEHAVIOR.
--- NOTE | 2017-01-24 11:50 | NUR ---
GPS/RN-NOTES PATIENT AWAKE,ALERT LAYING IN HER BED,NO ACUTE DISTRESS NOTED CALM AND COOPERATIVE NO SOB NOTED.WILL CONT. MONITORING Q15 MINS. FOR SAFETY AND BEHAVIOR.
[2017-01-24 13:30] VITALS: BP 117/80
[2017-01-24 16:05] VITALS: BP 144/56
[2017-01-24 20:00] VITALS: BP 146/62
[2017-01-25] MEDS: hydrALAZINE HCL 25 MG TABLET PO SCH ×3 (04:59→21:50)
[2017-01-25 08:00] VITALS: BP 138/66
[2017-01-25] MEDS: ALLOPURINOL 100 MG TABLET PO SCH (08:09)
[2017-01-25] MEDS: FUROSEMIDE 20 MG TABLET PO SCH (08:10)
[2017-01-25] MEDS: BENZTROPINE MESYLATE (1 MG) 1 MG TABLET PO SCH ×2 (08:10→16:29)
[2017-01-25] MEDS: DILTIAZEM HCL CD 240 MG PO SCH (08:10)
[2017-01-25] MEDS: NATEGLINIDE 60 MG TABLET PO SCH ×3 (08:10→16:29)
[2017-01-25] MEDS: risperiDONE 0.25 MG TABLET PO SCH ×2 (08:10→21:50)
[2017-01-25] MEDS: DIVALPROEX SODIUM 125 MG CAP.SPRINK PO SCH ×3 (08:10→16:29)
--- NOTE | 2017-01-25 12:04 | NUR ---
Family Update: MEDINA called pt's daughter Madison [phone] to inform her that the tentative discharge date was set for Saturday. Madison stated that she will be able to pick patient up on Saturday at noon. MEDINA to confirm with and with Madison later today.
[2017-01-25 16:00] VITALS: BP 129/50
[2017-01-25 20:00] VITALS: BP 146/52
[2017-01-25] MEDS: TEMAZEPAM 7.5 MG CAPSULE PO PRN (21:50)
[2017-01-26] MEDS: hydrALAZINE HCL 25 MG TABLET PO SCH ×3 (05:00→21:19)
[2017-01-26 08:00] VITALS: BP 139/60
[2017-01-26] MEDS: NATEGLINIDE 60 MG TABLET PO SCH ×3 (08:54→16:35)
[2017-01-26] MEDS: risperiDONE 0.25 MG TABLET PO SCH ×2 (08:54→21:19)
[2017-01-26] MEDS: DIVALPROEX SODIUM 125 MG CAP.SPRINK PO SCH ×3 (08:54→16:34)
[2017-01-26] MEDS: BENZTROPINE MESYLATE (1 MG) 1 MG TABLET PO SCH ×2 (08:55→16:35)
[2017-01-26] MEDS: FUROSEMIDE 20 MG TABLET PO SCH (08:56)
[2017-01-26] MEDS: DILTIAZEM HCL CD 240 MG PO SCH (08:56)
[2017-01-26] MEDS: ALLOPURINOL 100 MG TABLET PO SCH (08:57)
[2017-01-26 15:38] VITALS: BP 133/53
[2017-01-26] MEDS: IPRATROPIUM NEB FS 0.5 MG/2.5 ML AMPUL.NEB NEB PRN ×2 (17:03→20:50)
[2017-01-26 20:00] VITALS: BP 128/63
[2017-01-26] MEDS: FENTANYL TD PATCH (50 MCG/HR) 50 MCG/HR PATCH.TD72 TD SCH (21:24)
[2017-01-27] MEDS: hydrALAZINE HCL 25 MG TABLET PO SCH ×3 (05:41→20:06)
[2017-01-27] MEDS: IPRATROPIUM NEB FS 0.5 MG/2.5 ML AMPUL.NEB NEB PRN (06:27)
--- NOTE | 2017-01-27 07:02 | NUR ---
0600 PT C/O SOB SAT 93-94% HHN TX GIVEN X2 CONT TO MONITOR.
[2017-01-27] MEDS: BENZTROPINE MESYLATE (1 MG) 1 MG TABLET PO SCH ×2 (08:16→16:51)
[2017-01-27] MEDS: DILTIAZEM HCL CD 240 MG PO SCH (08:16)
[2017-01-27] MEDS: risperiDONE 0.25 MG TABLET PO SCH ×2 (08:17→20:06)
[2017-01-27] MEDS: DIVALPROEX SODIUM 125 MG CAP.SPRINK PO SCH ×3 (08:17→16:51)
[2017-01-27] MEDS: FUROSEMIDE 20 MG TABLET PO SCH (08:17)
[2017-01-27] MEDS: NATEGLINIDE 60 MG TABLET PO SCH ×3 (08:17→17:00)
[2017-01-27] MEDS: ALLOPURINOL 100 MG TABLET PO SCH (08:18)
[2017-01-27 08:20] VITALS: BP 133/74
[2017-01-27] MEDS: ERGOCALCIFEROL (VITAMIN D 2) 50,000 UNIT CAPSULE PO SCH (08:22)
[2017-01-27] MEDS: LORAZEPAM 0.5 MG TABLET PO PRN (15:27)
--- NOTE | 2017-01-27 15:35 | NUR ---
[id number]: GAVE ATIVAN 1 MG PO DUE TO SEVERE ANXIETY UPON PT REQUEST AND WILL CONTINUE TO MONITOR FOR EFFECTIVENESS OF MEDICATION.
[2017-01-27 15:58] VITALS: BP 134/62
--- NOTE | 2017-01-27 18:52 | NUR ---
[id number]: NO STARLIX 120 MG PER PHARMACY AT THIS TIME.
[2017-01-27 20:14] VITALS: BP 131/57
[2017-01-27] MEDS: TEMAZEPAM 7.5 MG CAPSULE PO PRN (22:08)
--- NOTE | 2017-01-27 22:08 | NUR ---
GPS RN NOTES: PATIENT LAYING IN BED AWAKE, A/O X2. PT IS CONFUSED. REALITY ORIENTATION AND AWARENESS PROVIDED. PATIENT UNABLE TO SLEEP. VITAL SIGNS ARE STABLE. NO MANIFESTATION OF PAIN OR DISCOMFORT. RESTORIL 7.5MG PO GIVEN PRN ORDER. WILL CONTINUE TO MONITOR PATIENT HOUR OF SLEEP AND WILL MONITOR FOR SAFETY AND BEHAVIOR Q15 MINS.
[2017-01-28] MEDS: hydrALAZINE HCL 25 MG TABLET PO SCH ×3 (04:54→21:26)
[2017-01-28 08:00] VITALS: BP 146/64
[2017-01-28] MEDS: ALLOPURINOL 100 MG TABLET PO SCH (08:12)
[2017-01-28] MEDS: risperiDONE 0.25 MG TABLET PO SCH ×2 (08:13→14:40)
[2017-01-28] MEDS: DILTIAZEM HCL CD 240 MG PO SCH (08:13)
[2017-01-28] MEDS: FUROSEMIDE 20 MG TABLET PO SCH (08:13)
[2017-01-28] MEDS: DIVALPROEX SODIUM 125 MG CAP.SPRINK PO SCH ×3 (08:13→16:53)
[2017-01-28] MEDS: BENZTROPINE MESYLATE (1 MG) 1 MG TABLET PO SCH ×2 (08:13→16:53)
[2017-01-28] MEDS: NATEGLINIDE 60 MG TABLET PO SCH ×3 (09:00→16:53)
--- NOTE | 2017-01-28 09:00 | NUR ---
[id number]: DIDN'T ADMINISTER STARLIX 120 MG PO DUE TO NOT BEING AVAILABLE IN STOCK ACCORDING TO PHARMACY.
--- NOTE | 2017-01-28 10:29 | NUR ---
Discharge Planning / Family Update: When social worker clinical came to work on Saturday morning, she was informed by the nursing staff that the patient had not slept all night and that she made some remarks that were concerning. The nursing staff informed the on-call psychiatrist, Dr. Beard, of this who decided to hold the discharge for today. MEDINA called silvano's daughter Madison [phone] and informed her of this. Madison stated that she is concerned for her mother and would like to speak with her psychiatrist, Dr. Wilkerson. MEDINA will forward Madison's contact information to Dr. Wilkerson.
[2017-01-28] MEDS: LORAZEPAM 0.5 MG TABLET PO PRN (11:24)
--- NOTE | 2017-01-28 11:24 | NUR ---
[id number]: GAVE ATIVAN 1 MG PO DUE TO SEVERE ANXIETY UPON PT REQUEST AND WILL CONTINUE TO MONITOR FOR EFFECTIVENESS OF MEDICATION
[2017-01-28] MEDS ORDERED: OLANZAPINE 10 MG VIAL IM ONE (15:30)
--- NOTE | 2017-01-28 15:30 | NUR ---
[id number]: NOTIFIED DR. LOPEZ ABOUT PT BEING ANXIOUS, RESTLESS, IRRITABLE, UNPREDICTABLE BEHAVIOR. DR. LOPEZ ORDERED ZYPREXA 3 MG IM.
--- NOTE | 2017-01-28 15:45 | NUR ---
[id number]: NOTIFIED DR. LOPEZ THAT PT'S BEHAVIOR IMPROVED AND PT IS CALM LYING IN BED AND NO NEED FOR ZYPREXA 3 MG IM.
[2017-01-28 16:00] VITALS: BP 137/60
--- NOTE | 2017-01-28 19:30 | NUR ---
GPS RN NOTE, RECEIVED PATIENT AWAKE AND IN BED NO S/S OR COMPLAINTS OF PAIN AT THIS TIME. PATIENT IS DISPLAYING NO S/S OF APPARENT DISTRESS AT THIS TIME. PATIENT BREATHING IS UNLABORED WITH EQUAL RISE AND FALL OF THE CHEST. PATIENT IS ALERT AND ORIENTED X 1 ON ROOM AIR WITH A SPOO2 92 %. PATIENT IS MED SELECTIVE, CONFUSED, UNPREDICTABLE AT TIMES, ANXIOUS AT TIMES, AGGRESSIVE AT TIMES, DISORGANIZED, AND NEEDS REORIENTATION. PATIENT DENIES SUICIDE IDEATIONS AND HOMICIDAL IDEATIONS AT THIS TIME. PATIENT ASSISTED WITH TURNING AND REPOSITIONING Q2HR AND PRN FOR COMFORT AND CIRCULATION. PATIENT HAS NO NEEDS AT THIS TIME. PATIENT EDUCATED ON THE USE OF THE CALL [place]. PATIENT BED SIDE RAILS UP X 2 FOR SAFETY. PATIENT BED IS LOCKED AND LOW WILL CONTINUE TO MONITOR AND MAINTAIN SAFETY Q15 MIN WITH THE HELP OF STAFF.
[2017-01-28 20:56] VITALS: BP 132/73
[2017-01-28] MEDS: TEMAZEPAM 7.5 MG CAPSULE PO PRN (21:26)
--- NOTE | 2017-01-28 21:26 | NUR ---
GPS RN NOTE, PATIENT HAS A COMPLAINT OF NOT BEING ABLE TO SLEEP AND IS REQUESTING RESTORIL AT THIS TIME. PATIENT VITAL SIGNS ARE STABLE. GAVE RESTORIL 7.5MG PO HS ORDERED. WILL REASSESS FOR INSOMNIA AND I WILL CONTINUE TO MONITOR THIS PATIENT.
[2017-01-28] MEDS ORDERED: risperiDONE 1 MG TABLET PO SCH (22:00)
[2017-01-29] MEDS: hydrALAZINE HCL 25 MG TABLET PO SCH ×3 (05:00→21:00)
--- NOTE | 2017-01-29 05:11 | NUR ---
GPS RN NOTE, PATIENT REFUSED TO TAKE HYDRALAZINE 25 MG PO Q8 HR ORDERED. OFFERED HYDRALAZINE THREE TIMES AND STILL PATIENT REFUSED. EDUCATED THE PATIENT ON THE RISKS AND BENEFITS OF TAKING AND REFUSING AFOREMENTIONED MEDICATION. WILL CONTINUE TO MONITOR THIS PATIENT.
[2017-01-29 08:00] VITALS: BP 124/54
[2017-01-29] MEDS: risperiDONE 0.25 MG TABLET PO SCH (08:00)
[2017-01-29] MEDS: DILTIAZEM HCL CD 240 MG PO SCH (09:00)
[2017-01-29] MEDS: FUROSEMIDE 20 MG TABLET PO SCH (09:00)
[2017-01-29] MEDS: NATEGLINIDE 60 MG TABLET PO SCH ×3 (09:00→16:45)
[2017-01-29] MEDS: BENZTROPINE MESYLATE (1 MG) 1 MG TABLET PO SCH ×2 (09:00→16:45)
[2017-01-29] MEDS: ALLOPURINOL 100 MG TABLET PO SCH (09:00)
[2017-01-29] MEDS: DIVALPROEX SODIUM 125 MG CAP.SPRINK PO SCH ×3 (09:00→16:45)
[2017-01-29] MEDS: risperiDONE 1 MG TABLET PO SCH ×2 (10:09→21:00)
--- NOTE | 2017-01-29 10:17 | NUR ---
GPS/RN-NOTES PATIENT STRONGLY REFUSED 0800 AND 0900AM MEDICATIONS DESPITE EXPLANATIONS RISK AND BENEFITS. OFFERED X3 BUT PATIENT GETS ANGRY. DR. LOPEZ IN THE UNIT AT THIS TIME AND MADE AWARE OF THE REFUSAL. ORDERED NEW MEDICATION AND PATIENT TOOK IT.
--- NOTE | 2017-01-29 13:34 | NUR ---
GPS/RN-NOTES PATIENT STRONGLY REFUSED 1300 MEDICATIONS DESPITE EXPLANATIONS RISK AND BENEFITS. OFFERED X3 BUT PATIENT GETS ANGRY.
[2017-01-29 13:35] VITALS: BP 123/68
[2017-01-29 16:00] VITALS: BP 131/50
[2017-01-29 20:03] VITALS: BP 130/50
[2017-01-29] MEDS: FENTANYL TD PATCH (50 MCG/HR) 50 MCG/HR PATCH.TD72 TD SCH (21:00)
[2017-01-29] MEDS ORDERED: risperiDONE 1 MG TABLET PO SCH (21:00)
--- NOTE | 2017-01-29 21:02 | NUR ---
GPS RN NOTES: PATIENT REFUSED ALL SCHEDULED MEDS ON 2100. OFFERED X3, BUT PATIENT GETS ANGRY IN [place] LANGUAGE. DESPITE OF EXPLANATION THE RISKS AND BENEFITS. BUT PATIENT STRONGLY REFUSED. WILL CONTINUE TO MONITOR.
[2017-01-30] MEDS: hydrALAZINE HCL 25 MG TABLET PO SCH ×3 (05:17→22:05)
[2017-01-30 07:19] LABS: BASOPHILS % (AUTO) 0.3 % (0.0-2.0); EOSINOPHILS # (AUTO) 0.1 /CMM (0.0-0.7); EOSINOPHILS % (AUTO) 1.3 % (0.0-6.0); HEMATOCRIT 32 % (33-45); HEMOGLOBIN 10.6 g/dL (11.5-14.8); LYMPHOCYTES # (AUTO) 1.4 /CMM (0.8-4.8); LYMPHOCYTES % (AUTO) 16.1 % (20.0-44.0); MEAN CORPUSCULAR HEMOGLOBIN 30 PG (26.0-33.0); MEAN CORPUSCULAR HGB CONC 33 g/dl (31.0-36.0); MEAN CORPUSCULAR VOLUME 91 fL (82-100); MONOCYTES # (AUTO) 0.8 /CMM (0.1-1.30); NEUTROPHILS # (AUTO) 6.1 /CMM (1.8-8.9); NEUTROPHILS % (AUTO) 72.3 % (43.0-81.0); PLATELET COUNT (AUTO) 246 /CMM (150-450); RDW COEFFICIENT OF VARIATION 16.1 (11.5-15.0); RED BLOOD CELL COUNT(AUTO) 3.55 MIL/uL (4.0-5.2); WHITE BLOOD COUNT (AUTO) 8.4 K/uL (4.3-11.0)
[2017-01-30 07:54] LABS: VALPROIC ACID 22 ug/mL (50-100)
[2017-01-30 07:56] LABS: ALANINE AMINOTRANSFERASE 27 U/L (12-78); ALBUMIN 3.1 g/dL (3.4-5.0); ALKALINE PHOSPHATASE 98 U/L (46-116); ASPARTATE AMINOTRANSFERASE 36 U/L (15-37); BILIRUBIN,TOTAL 0.6 mg/dL (0.2-1.0); CALCIUM, SERUM 9.6 mg/dL (8.5-10.1); CARBON DIOXIDE 25 mmol/L (21-32); CHLORIDE 104 mmol/L (98-107); CREATININE 1.7 mg/dL (0.6-1.3); GLUCOSE 145 mg/dL (74-106); SODIUM SERUM 141 mmol/L (136-145); TOTAL PROTEIN, SERUM 7.5 g/dL (6.4-8.2); UREA NITROGEN, BLOOD 48 mg/dL (7-18)
[2017-01-30 08:00] VITALS: BP 141/94
[2017-01-30] MEDS: NATEGLINIDE 60 MG TABLET PO SCH ×3 (08:47→16:34)
[2017-01-30] MEDS: DIVALPROEX SODIUM 125 MG CAP.SPRINK PO SCH ×3 (08:57→16:34)
[2017-01-30] MEDS: DILTIAZEM HCL CD 240 MG PO SCH (08:58)
[2017-01-30] MEDS: BENZTROPINE MESYLATE (1 MG) 1 MG TABLET PO SCH ×2 (08:58→16:34)
[2017-01-30] MEDS: ALLOPURINOL 100 MG TABLET PO SCH (08:59)
[2017-01-30] MEDS: risperiDONE 1 MG TABLET PO SCH ×3 (08:59→22:05)
[2017-01-30] MEDS: FUROSEMIDE 20 MG TABLET PO SCH (08:59)
--- NOTE | 2017-01-30 12:08 | NUR ---
Discharge Planning: MEDINA consulted with pt's psychiatrist regarding patient's progress. Dr. Wilkerson stated that she had, once again, increased patient's anti-psychotic medication and doubled her depakote. She also informed SW that there is a possibility that patient has a UTI and, therefore, a test was ordered for that. SW to follow up with MD and with family regarding patient's discharge. Addendum: 01/30/17 at 1314 by TESFAYE HANEY Please note that MEDINA was advised by psychiatrist that placement should be held off until the UTI results come through.
--- NOTE | 2017-01-30 13:12 | NUR ---
Family Update: MEDINA discussed the recent updates with pt's daughter, Madison [phone]. Madison stated that a SNF placement would be best for her mother and suggest [facility]. MEDINA stated that she will follow up with that facility but that there have to be other options in place. Madison stated that she understood and thanked MEDINA for her help.
[2017-01-30] MEDS: LORAZEPAM 0.5 MG TABLET PO PRN (13:22)
[2017-01-30] MEDS ORDERED: IV NS 0.9% 1,000 ML IV PRN (14:30)
[2017-01-30] MEDS ORDERED: IV NS 0.9% 1,000 ML BAG IV ONE (14:30)
[2017-01-30 16:00] VITALS: BP 151/60
--- NOTE | 2017-01-30 17:37 | NUR ---
RN NOTE:NOTED IV SITE LEFT LOWER ARM INFILTRATED YAQUELIN COSTELLO DRAFTER CONSTRUCTION NOTIFIED WITH NEW ORDER TO D/C IV FLUID,BMP IN AM.
[2017-01-30 20:15] VITALS: BP 143/53
[2017-01-30] MEDS: TEMAZEPAM 7.5 MG CAPSULE PO PRN (22:03)
[2017-01-31] MEDS: hydrALAZINE HCL 25 MG TABLET PO SCH ×2 (05:27→12:25)
[2017-01-31 07:25] LABS: APPEARANCE,URINE SL CLOUDY (CLEAR); BILIRUBIN,URINE NEGATIVE (NEGATIVE); BLOOD, URINE NEGATIVE Ery/uL (NEGATIVE); COLOR,URINE YELLOW (YELLOW); KETONES,URINE NEGATIVE (NEGATIVE); LEUKOCYTE ESTERASE ,URINE 2+ (NEGATIVE); NITRITE, URINE NEGATIVE (NEGATIVE); PROTEIN,URINE NEGATIVE (NEGATIVE); UGLUCOSE NEGATIVE (NEGATIVE); UROBILINOGEN,URINE 0.2 EU/dL (0.2)
[2017-01-31 08:36] LABS: CALCIUM, SERUM 9.5 mg/dL (8.5-10.1); CARBON DIOXIDE 26 mmol/L (21-32); CHLORIDE 103 mmol/L (98-107); CREATININE 1.6 mg/dL (0.6-1.3); GLUCOSE 103 mg/dL (74-106); POTASSIUM 4.7 mmol/L (3.5-5.1); SODIUM SERUM 138 mmol/L (136-145); UREA NITROGEN, BLOOD 44 mg/dL (7-18)
[2017-01-31 08:43] VITALS: BP 145/57
--- NOTE | 2017-01-31 08:53 | NUR ---
EDUARD NOT AVAILABLE ON FLOOR. CALLED PHARMACY AND TALKED TO ESTELA. SHE SAYS SHE WILL HAVE SOMEONE BRING THE MED.
[2017-01-31] MEDS: BENZTROPINE MESYLATE (1 MG) 1 MG TABLET PO SCH ×2 (09:00→16:09)
[2017-01-31] MEDS: DIVALPROEX SODIUM 125 MG CAP.SPRINK PO SCH ×3 (09:00→16:09)
[2017-01-31] MEDS: risperiDONE 1 MG TABLET PO SCH ×2 (09:00→12:25)
[2017-01-31] MEDS: ALLOPURINOL 100 MG TABLET PO SCH (09:00)
[2017-01-31] MEDS: NATEGLINIDE 60 MG TABLET PO SCH ×3 (09:00→16:10)
[2017-01-31] MEDS: DILTIAZEM HCL CD 240 MG PO SCH (09:00)
--- NOTE | 2017-01-31 09:37 | NUR ---
CALLED PHARMACY AGAIN CARDIZEM IS STILL NOT IN STOCK OR AVAILABLE ON FLOOR. ESTELA STATES THEY ARE WORKING ON IT AND WILL DELIVER THE MEDICATION SOON THEY CAN.
[2017-01-31 09:56] LABS: BACTERIA,URINE Few /HPF (None Seen); RBC,URINE 0-2 /HPF (0-2); SQUAMOUS EPITHELIAL CELL,UR Few /HPF (None Seen)
--- NOTE | 2017-01-31 12:20 | NUR ---
PT BROUGHT HEARING AID TO THE STATION AND STATES IT IS NOT WORKING. CHANGED THE BATTERIES, BUT STILL NOT WORKING. CALLED PATIENT DAUGHTER, BRIAN, AND INFORMED HER OF THE PROBLEM. BRIAN STATES THAT SHE HAS A REPLACEMENT AT HOME AND WILL BRING IT IN LATER WHEN SHE COMES TO VISIT. PLACED PT HEARING AIR IN BELONGINGS FOR SAFE KEEPING.
[2017-01-31] MEDS: MAG HYDROX/AL HYDROX/SIMETH 30 ML UDC PO PRN (12:45)
[2017-01-31] MEDS: ONDANSETRON 4 MG TAB.RAPDIS PO PRN (12:45)
--- NOTE | 2017-01-31 15:25 | NUR ---
Discharge Planning: MEDINA faxed inquiry to [facility] [address]. [facility] [address] and fax
[2017-01-31 15:32] VITALS: BP 109/73
--- NOTE | 2017-01-31 15:32 | NUR ---
Discharge Planning: MEDINA also faxed to [address], [place] [address] , as requested by family for patient to be placed on waiting list. Addendum: 01/31/17 at 1532 by TESFAYE HANEY
--- NOTE | 2017-01-31 15:40 | NUR ---
Discharge Planning: MEDINA got in contact with Percy, human resources coordinator, from [facility] care [phone] / [phone]. Percy stated that the patient's family has been in contact with him and that he will assist in locating a facility for patient and will coordinate hospice care. Percy asked if the psychiatrist would be able to talk to the medical office assistant instructor at [facility]. SW to follow up with Dr. Wilkerson and with Percy tomorrow morning.
--- NOTE | 2017-01-31 16:08 | NUR ---
YAQUELIN COSTELLO IN THE UNIT EXAMINED THE THE PT. AND ORDERED TO TRANSFER PT. TO MED-SURG FOR ACUTE RENAL FAILURE AND UTI. DR. LOPEZ MADE AWARE AND ORDERED TO D/C PT. TO MED- SURG AND TO CONTINUE ON HOLD AND TO CONTINUE SAME MEDS. Addendum: 01/31/17 at 1625 by CHAPO CHAMPION RN DR. LOPEZ D/C PT. MED-SURG AND D/C HOLD AND CONTINUE SAME MEDS.
--- NOTE | 2017-01-31 16:35 | NUR ---
CALLED BRIAN HURTADO AT [phone] AND WAS NOTIFIED ABOUT THE TRANSFERRED.
--- NOTE | 2017-01-31 16:35 | NUR ---
DISCHARGED PT TO MEDICAL FLOOR AFTER BEING SEEN BY GILMER JAMISON. YAQUELIN PLACED PT ON HIGHER LEVEL OF CARE SHE NEEDS IV FLUIDS AND ABX FOR ARF AND UTI. DR LOPEZ AWARE AND PLACED DISCHARGE ORDER. TWO RNS CHECKED AND ACCOUNTED FOR BELONGINGS AND SIGNED PAPERWORK PATIENT IS UNABLE TO SIGN. IV WAS STARTED ON THE FLOOR BY YAQUELIN BEFORE PATIENT LEFT THE FLOOR. PATIENT REFUSED PICTURES OF SKIN EVEN AFTER EXPLANATION SHE WAS FULLY DRESSED AND DID NOT WISH TO REMOVE HER CLOTHING. PT REFUSED FLU AND PNEUMONIA SHOTS. PATIENT TRANSFERRED TO MS 2, ROOM 201. REPORT GIVEN TO SOLEDAD MARTINI. CALLED AND INFORMED PT DAUGHTER, BRIAN, OR THE TRANSFER TO THE FLOOR. PATIENT LEFT IN STABLE CONDITION.
[2017-01-31] MEDS ORDERED: ONDA4TAB8 PO (16:51)
[2017-01-31] MEDS ORDERED: DIVA250T6 PO (16:51)
[2017-01-31] MEDS ORDERED: IPRA0.2S9 IH (16:51)
[2017-01-31] MEDS ORDERED: MAGN400O6 PO (16:51)
[2017-01-31] MEDS ORDERED: NORM10004 IV (16:51)
[2017-01-31] MEDS ORDERED: TEMA7.5C12 PO (16:51)
[2017-01-31] MEDS ORDERED: CEFT1VIA15 IV (16:51)
[2017-01-31] MEDS ORDERED: RISP0.253 PO ×2 (16:51)
[2017-01-31] MEDS ORDERED: ACET-868 PO (16:51)
[2017-01-31] MEDS ORDERED: LORA1TAB PO (16:51)
[2017-01-31] MEDS ORDERED: BENZ0.5T3 PO (16:51)
[2017-01-31] MEDS ORDERED: MAG30ORA PO (16:51)
[2017-01-31] MEDS ORDERED: HYDR-4076 PO (16:51)
== END 2017-01-31 16:32 | disposition short-term general hospital (02) | DRG 885 ==
LOC: GPS 17:08
PROVIDERS: ADMIT Psychiatry & Neurology Psychosomatic Medicine; ATTEND Nurse Practitioner Acute Care
DX: F29 Unspecified psychosis not due to a substance or known physiological condition (principal); N17.0 Acute kidney failure with tubular necrosis; N18.9 Chronic kidney disease, unspecified; G93.40 Encephalopathy, unspecified; E11.22 Type 2 diabetes mellitus with diabetic chronic kidney disease; E86.0 Dehydration; E87.0 Hyperosmolality and hypernatremia; C34.90 Malignant neoplasm of unspecified part of unspecified bronchus or lung; E44.1 Mild protein-calorie malnutrition; E88.09 Other disorders of plasma-protein metabolism, not elsewhere classified; F03.91 Unspecified dementia, unspecified severity, with behavioral disturbance; I13.0 Hypertensive heart and chronic kidney disease with heart failure and stage 1 through stage 4 chronic kidney disease, or unspecified chronic kidney disease; N39.0 Urinary tract infection, site not specified; Z73.6 Limitation of activities due to disability; E66.01 Morbid (severe) obesity due to excess calories; E78.5 Hyperlipidemia, unspecified; I50.9 Heart failure, unspecified; K21.9 Gastro-esophageal reflux disease without esophagitis; J44.9 Chronic obstructive pulmonary disease, unspecified; Z85.3 Personal history of malignant neoplasm of breast; Z87.891 Personal history of nicotine dependence; Z66 Do not resuscitate; Z95.0 Presence of cardiac pacemaker; Z68.38 Body mass index [BMI] 38.0-38.9, adult; J45.909 Unspecified asthma, uncomplicated; H40.9 Unspecified glaucoma; Z79.84 Long term (current) use of oral hypoglycemic drugs
CPT/HCPCS: 36415; 80048-TC; 80053-TC; 80061-TC; 80164-TC; 81000-TC; 85025-TC; 87081-TC; 87086-TC; J7030; J7040; Q0162

== ENCOUNTER 2017-01-31 16:28 | Inpatient (IN) | payer MEDICARE, OTHER ==
[~2017-01-31] VITALS: Ht 160 cm; Wt 98.4 kg
[~2017-01-31 16:28] MED LIST changes: -ALPR0.25 PO; +ERGO500040 PO; -ERGO500047 PO; -ESCI10TA PO; -LORA1TAB PO
[2017-01-31 16:30] VITALS: BP 130/55
[2017-01-31] MEDS ORDERED: IV NS 0.9% 1,000 ML IV PRN (16:42)
[2017-01-31] MEDS ORDERED: CEFT1VIA15 IV (16:51)
[2017-01-31] MEDS ORDERED: RISP0.253 PO ×2 (16:51)
[2017-01-31] MEDS ORDERED: TEMA7.5C12 PO (16:51)
[2017-01-31] MEDS ORDERED: HYDR-4076 PO (16:51)
[2017-01-31] MEDS ORDERED: MAG30ORA PO (16:51)
[2017-01-31] MEDS ORDERED: LORA1TAB PO (16:51)
[2017-01-31] MEDS ORDERED: NORM10004 IV (16:51)
[2017-01-31] MEDS ORDERED: MAGN400O6 PO (16:51)
[2017-01-31] MEDS ORDERED: BENZ0.5T3 PO (16:51)
[2017-01-31] MEDS ORDERED: ACET-868 PO (16:51)
[2017-01-31] MEDS ORDERED: ONDA4TAB8 PO (16:51)
[2017-01-31] MEDS ORDERED: DIVA250T6 PO (16:51)
[2017-01-31] MEDS ORDERED: IPRA0.2S9 IH (16:51)
[2017-01-31] MEDS ORDERED: HYDROCODONE/APAP 10/325MG 1 EA TABLET PO PRN (17:00)
[2017-01-31] MEDS ORDERED: DEXTROSE 50%-WATER 50 ML DISP.SYRIN IV PRN (17:00)
[2017-01-31] MEDS ORDERED: HYDROCODONE/APAP 5/325MG 1 EACH TABLET PO PRN (17:00)
[2017-01-31] MEDS ORDERED: Z GUARD REMEDY 2 OZ OINT TP PRN (17:00)
[2017-01-31] MEDS ORDERED: IV NS 0.9% 1,000 ML BAG IV ONE (17:00)
[2017-01-31] MEDS ORDERED: ONDANSETRON HCL/PF 4 MG/2 ML VIAL IVP PRN (17:00)
[2017-01-31] MEDS ORDERED: MAGNESIUM HYDROXIDE 30 ML UDC PO PRN (17:00)
[2017-01-31] MEDS ORDERED: ACETAMINOPHEN 325 MG TABLET PO PRN (17:00)
[2017-01-31] MEDS ORDERED: MAG HYDROX/AL HYDROX/SIMETH 30 ML UDC PO PRN (17:00)
[2017-01-31 17:27] VITALS: BP 130/55
[2017-01-31] MEDS ORDERED: TEMAZEPAM 7.5 MG CAPSULE PO PRN (17:30)
[2017-01-31] MEDS ORDERED: ALBUTEROL FS 2.5 MG/3 ML VIAL.NEB NEB PRN (17:30)
[2017-01-31] MEDS ORDERED: IV NS 0.9% 1,000 ML IV ONE ×2 (17:30)
[2017-01-31] MEDS: CEFTRIAXONE 1 G in IV D5W 50 ML IV SCH (18:43)
[2017-01-31] MEDS: BLOOD SUGAR DIAGNOSTIC 1 EACH STRIP IN SCH ×2 (18:48→23:19)
[2017-01-31 20:00] VITALS: BP 117/46
[2017-01-31] MEDS: hydrALAZINE HCL 25 MG TABLET PO SCH (21:09)
[2017-01-31] MEDS: DIVALPROEX SODIUM 250 MG TABLET.DR PO SCH (21:09)
[2017-01-31] MEDS: risperiDONE 0.25 MG TABLET PO SCH (21:09)
[2017-01-31] MEDS ORDERED: ZOLPIDEM TARTRATE 5 MG TABLET PO PRN (22:00)
[2017-02-01] MEDS: hydrALAZINE HCL 25 MG TABLET PO SCH ×3 (05:22→21:00)
[2017-02-01] MEDS: BLOOD SUGAR DIAGNOSTIC 1 EACH STRIP IN SCH ×4 (06:34→22:17)
[2017-02-01 06:42] LABS: BASOPHILS % (AUTO) 0.3 % (0.0-2.0); EOSINOPHILS # (AUTO) 0.2 /CMM (0.0-0.7); HEMATOCRIT 31 % (33-45); LYMPHOCYTES # (AUTO) 1.2 /CMM (0.8-4.8); LYMPHOCYTES % (AUTO) 14.6 % (20.0-44.0); MEAN CORPUSCULAR HEMOGLOBIN 29 PG (26.0-33.0); MEAN CORPUSCULAR HGB CONC 32 g/dl (31.0-36.0); MEAN CORPUSCULAR VOLUME 91 fL (82-100); MONOCYTES # (AUTO) 0.8 /CMM (0.1-1.30); MONOCYTES % (AUTO) 10.1 % (2.0-12.0); NEUTROPHILS # (AUTO) 5.8 /CMM (1.8-8.9); PLATELET COUNT (AUTO) 232 /CMM (150-450); RDW COEFFICIENT OF VARIATION 15.9 (11.5-15.0); RED BLOOD CELL COUNT(AUTO) 3.42 MIL/uL (4.0-5.2)
[2017-02-01 06:54] LABS: CALCIUM, SERUM 8.8 mg/dL (8.5-10.1); CARBON DIOXIDE 28 mmol/L (21-32); CHLORIDE 102 mmol/L (98-107); CREATININE 1.4 mg/dL (0.6-1.3); GLUCOSE 99 mg/dL (74-106); MAGNESIUM 2.2 mg/dL (1.8-2.4); POTASSIUM 5.2 mmol/L (3.5-5.1); SODIUM SERUM 136 mmol/L (136-145); UREA NITROGEN, BLOOD 40 mg/dL (7-18)
[2017-02-01 08:00] VITALS: BP 116/45
[2017-02-01] MEDS: ALLOPURINOL 100 MG TABLET PO SCH (08:27)
[2017-02-01] MEDS: BENZTROPINE MESYLATE (1 MG) 1 MG TABLET PO SCH ×2 (08:27→17:00)
[2017-02-01] MEDS: DIVALPROEX SODIUM 250 MG TABLET.DR PO SCH ×2 (08:28→12:37)
[2017-02-01] MEDS: risperiDONE 0.25 MG TABLET PO SCH ×3 (08:30→22:16)
[2017-02-01] MEDS: FENTANYL TD PATCH (50 MCG/HR) 50 MCG/HR PATCH.TD72 TD SCH (08:33)
[2017-02-01] MEDS: DILTIAZEM HCL CD 240 MG PO SCH (09:00)
[2017-02-01] MEDS: LORAZEPAM INJ 2 MG/ML VIAL IV PRN (12:38)
[2017-02-01] MEDS ORDERED: IV D5/ 0.9% NACL 1,000 ML IV PRN (16:00)
[2017-02-01 16:17] VITALS: BP 138/59
[2017-02-01] MEDS: MEGESTROL ACETATE 40 MG TABLET PO SCH (17:00)
[2017-02-01] MEDS: CEFTRIAXONE 1 G in IV D5W 50 ML IV SCH (17:52)
[2017-02-01 20:00] VITALS: BP 112/43
[2017-02-01] MEDS: VALPROATE 250 MG in IV D5W 100 ML IV SCH (22:16)
[2017-02-01 22:36] VITALS: BP 112/43
[2017-02-02] MEDS: VALPROATE 250 MG in IV D5W 100 ML IV SCH ×3 (05:37→20:53)
[2017-02-02] MEDS: hydrALAZINE HCL 25 MG TABLET PO SCH ×3 (05:42→20:31)
[2017-02-02] MEDS: BLOOD SUGAR DIAGNOSTIC 1 EACH STRIP IN SCH ×4 (05:50→22:14)
[2017-02-02 07:08] LABS: BASOPHILS % (AUTO) 0.2 % (0.0-2.0); EOSINOPHILS # (AUTO) 0.1 /CMM (0.0-0.7); EOSINOPHILS % (AUTO) 1.4 % (0.0-6.0); HEMATOCRIT 32 % (33-45); HEMOGLOBIN 10.6 g/dL (11.5-14.8); LYMPHOCYTES # (AUTO) 0.8 /CMM (0.8-4.8); LYMPHOCYTES % (AUTO) 10.1 % (20.0-44.0); MEAN CORPUSCULAR HEMOGLOBIN 30 PG (26.0-33.0); MEAN CORPUSCULAR HGB CONC 33 g/dl (31.0-36.0); MEAN CORPUSCULAR VOLUME 91 fL (82-100); MONOCYTES # (AUTO) 0.6 /CMM (0.1-1.30); MONOCYTES % (AUTO) 7.9 % (2.0-12.0); NEUTROPHILS # (AUTO) 6.2 /CMM (1.8-8.9); NEUTROPHILS % (AUTO) 80.4 % (43.0-81.0); PLATELET COUNT (AUTO) 262 /CMM (150-450); RDW COEFFICIENT OF VARIATION 15.9 (11.5-15.0); RED BLOOD CELL COUNT(AUTO) 3.55 MIL/uL (4.0-5.2); WHITE BLOOD COUNT (AUTO) 7.7 K/uL (4.3-11.0)
[2017-02-02 07:14] LABS: CALCIUM, SERUM 9.2 mg/dL (8.5-10.1); CARBON DIOXIDE 27 mmol/L (21-32); CHLORIDE 103 mmol/L (98-107); CREATININE 1.5 mg/dL (0.6-1.3); GLUCOSE 142 mg/dL (74-106); POTASSIUM 4.8 mmol/L (3.5-5.1); SODIUM SERUM 138 mmol/L (136-145); UREA NITROGEN, BLOOD 36 mg/dL (7-18)
[2017-02-02 08:00] VITALS: BP 110/71
[2017-02-02] MEDS: BENZTROPINE MESYLATE (1 MG) 1 MG TABLET PO SCH ×2 (08:22→16:35)
[2017-02-02] MEDS: MEGESTROL ACETATE 40 MG TABLET PO SCH ×2 (08:22→16:35)
[2017-02-02] MEDS: ALLOPURINOL 100 MG TABLET PO SCH (08:22)
[2017-02-02] MEDS: risperiDONE 0.25 MG TABLET PO SCH ×3 (08:22→20:34)
[2017-02-02] MEDS: DILTIAZEM HCL CD 240 MG PO SCH (09:00)
[2017-02-02] MEDS: INSULIN REGULAR, HUMAN 100 UNIT/ML 3 ML VIAL SQ PRN ×2 (12:01→22:11)
[2017-02-02] MEDS: LORAZEPAM INJ 2 MG/ML VIAL IV PRN (14:12)
[2017-02-02 16:00] VITALS: BP 121/69
[2017-02-02] MEDS: CEFTRIAXONE 1 G in IV D5W 50 ML IV SCH (17:51)
[2017-02-02 20:00] VITALS: BP 124/56
[2017-02-02] MEDS ORDERED: VALPROATE 500 MG/5 ML VIAL IV ONE (20:37)
[2017-02-02] MEDS: LORAZEPAM 1 MG TABLET PO PRN (22:24)
[2017-02-03] MEDS ORDERED: VALPROATE 500 MG/5 ML VIAL IV ONE (05:28)
[2017-02-03] MEDS: hydrALAZINE HCL 25 MG TABLET PO SCH ×3 (05:49→20:09)
[2017-02-03] MEDS: VALPROATE 250 MG in IV D5W 100 ML IV SCH (05:49)
[2017-02-03 06:32] LABS: BASOPHILS % (AUTO) 0.4 % (0.0-2.0); EOSINOPHILS # (AUTO) 0.2 /CMM (0.0-0.7); EOSINOPHILS % (AUTO) 2.7 % (0.0-6.0); HEMATOCRIT 30 % (33-45); HEMOGLOBIN 9.5 g/dL (11.5-14.8); MEAN CORPUSCULAR HEMOGLOBIN 29 PG (26.0-33.0); MEAN CORPUSCULAR HGB CONC 32 g/dl (31.0-36.0); MEAN CORPUSCULAR VOLUME 91 fL (82-100); MONOCYTES # (AUTO) 0.5 /CMM (0.1-1.30); MONOCYTES % (AUTO) 8.8 % (2.0-12.0); NEUTROPHILS # (AUTO) 4.4 /CMM (1.8-8.9); NEUTROPHILS % (AUTO) 71.1 % (43.0-81.0); PLATELET COUNT (AUTO) 224 /CMM (150-450); RDW COEFFICIENT OF VARIATION 16.5 (11.5-15.0); RED BLOOD CELL COUNT(AUTO) 3.27 MIL/uL (4.0-5.2); WHITE BLOOD COUNT (AUTO) 6.1 K/uL (4.3-11.0)
[2017-02-03 06:39] LABS: ALANINE AMINOTRANSFERASE 22 U/L (12-78); ALBUMIN 2.6 g/dL (3.4-5.0); ALKALINE PHOSPHATASE 86 U/L (46-116); ASPARTATE AMINOTRANSFERASE 24 U/L (15-37); BILIRUBIN,TOTAL 0.1 mg/dL (0.2-1.0); CALCIUM, SERUM 9.3 mg/dL (8.5-10.1); CARBON DIOXIDE 27 mmol/L (21-32); CHLORIDE 106 mmol/L (98-107); CREATININE 1.3 mg/dL (0.6-1.3); GLUCOSE 108 mg/dL (74-106); MAGNESIUM 2.2 mg/dL (1.8-2.4); PHOSPHORUS 3.5 mg/dL (2.5-4.9); POTASSIUM 4.8 mmol/L (3.5-5.1); SODIUM SERUM 142 mmol/L (136-145); TOTAL PROTEIN, SERUM 6.7 g/dL (6.4-8.2); UREA NITROGEN, BLOOD 38 mg/dL (7-18)
[2017-02-03 06:49] LABS: CREATINE KINASE, TOTAL 66 U/L (26-192)
[2017-02-03 08:00] VITALS: BP 135/62
[2017-02-03] MEDS: BLOOD SUGAR DIAGNOSTIC 1 EACH STRIP IN SCH ×4 (08:07→20:15)
[2017-02-03] MEDS: risperiDONE 0.25 MG TABLET PO SCH ×3 (09:00→20:10)
[2017-02-03] MEDS ORDERED: ERGOCALCIFEROL (VITAMIN D 2) 50,000 UNIT CAPSULE PO SCH (09:00)
[2017-02-03] MEDS: BENZTROPINE MESYLATE (1 MG) 1 MG TABLET PO SCH ×2 (09:30→16:18)
[2017-02-03] MEDS: DILTIAZEM HCL CD 240 MG PO SCH (09:31)
[2017-02-03] MEDS: MEGESTROL ACETATE 40 MG TABLET PO SCH ×2 (09:31→16:18)
[2017-02-03] MEDS: ALLOPURINOL 100 MG TABLET PO SCH (09:31)
[2017-02-03] MEDS: INSULIN REGULAR, HUMAN 100 UNIT/ML 3 ML VIAL SQ PRN (12:16)
[2017-02-03] MEDS: DIVALPROEX SODIUM 250 MG TABLET.DR PO SCH ×2 (13:06→20:09)
[2017-02-03 16:00] VITALS: BP 141/65
[2017-02-03] MEDS: CEFTRIAXONE 1 G in IV D5W 50 ML IV SCH (17:28)
[2017-02-03 19:47] VITALS: BP 138/57
[2017-02-03 20:00] VITALS: BP 138/57
[2017-02-03] MEDS: LORAZEPAM 1 MG TABLET PO PRN (20:13)
[2017-02-03] MEDS: LORAZEPAM INJ 2 MG/ML VIAL IV PRN (22:15)
[2017-02-04] MEDS: DIVALPROEX SODIUM 250 MG TABLET.DR PO SCH (05:00)
[2017-02-04] MEDS: hydrALAZINE HCL 25 MG TABLET PO SCH ×3 (05:00→20:52)
[2017-02-04] MEDS: BLOOD SUGAR DIAGNOSTIC 1 EACH STRIP IN SCH ×4 (06:56→21:36)
[2017-02-04 08:00] VITALS: BP 133/55
[2017-02-04] MEDS: FENTANYL TD PATCH (50 MCG/HR) 50 MCG/HR PATCH.TD72 TD SCH (08:53)
[2017-02-04] MEDS: ALLOPURINOL 100 MG TABLET PO SCH (09:00)
[2017-02-04] MEDS: MEGESTROL ACETATE 40 MG TABLET PO SCH ×3 (09:00→17:53)
[2017-02-04] MEDS: DILTIAZEM HCL CD 240 MG PO SCH (09:00)
[2017-02-04] MEDS: BENZTROPINE MESYLATE (1 MG) 1 MG TABLET PO SCH ×3 (09:00→17:53)
[2017-02-04] MEDS: risperiDONE 0.25 MG TABLET PO SCH (09:00)
[2017-02-04] MEDS: INSULIN REGULAR, HUMAN 100 UNIT/ML 3 ML VIAL SQ PRN ×2 (11:48→21:38)
[2017-02-04] MEDS: risperiDONE LIQUID 1 MG/ML ML PO SCH ×2 (12:00→20:52)
[2017-02-04] MEDS ORDERED: VALPROIC ACID 250 MG/5 ML UDC PO SCH (13:00)
[2017-02-04] MEDS: LORAZEPAM INJ 2 MG/ML VIAL IV PRN (13:01)
[2017-02-04] MEDS: VALPROATE 250 MG in IV D5W 100 ML IV SCH ×2 (13:32→20:52)
[2017-02-04] MEDS ORDERED: hydrALAZINE HCL IV 20 MG VIAL IV PRN (15:30)
[2017-02-04 20:54] VITALS: BP 165/82
[2017-02-04 22:00] VITALS: BP 165/82
[2017-02-05] MEDS: IPRATROPIUM NEB FS 0.5 MG/2.5 ML AMPUL.NEB IH PRN ×2 (02:27→07:47)
[2017-02-05] MEDS: LORAZEPAM INJ 2 MG/ML VIAL IV PRN (03:38)
[2017-02-05] MEDS: VALPROATE 250 MG in IV D5W 100 ML IV SCH (05:16)
[2017-02-05] MEDS: hydrALAZINE HCL 25 MG TABLET PO SCH (05:24)
[2017-02-05] MEDS: BLOOD SUGAR DIAGNOSTIC 1 EACH STRIP IN SCH (06:37)
[2017-02-05 08:00] VITALS: BP 148/72
[2017-02-05] MEDS: ALLOPURINOL 100 MG TABLET PO SCH (08:00)
[2017-02-05] MEDS: risperiDONE LIQUID 1 MG/ML ML PO SCH (08:00)
[2017-02-05] MEDS: MEGESTROL ACETATE 40 MG TABLET PO SCH (08:00)
[2017-02-05] MEDS: BENZTROPINE MESYLATE (1 MG) 1 MG TABLET PO SCH (08:00)
[2017-02-05 08:01] VITALS: BP 148/72
[2017-02-05] MEDS: DILTIAZEM HCL CD 240 MG PO SCH (08:01)
[2017-02-05] MEDS ORDERED: [UNRECOGNIZED DRUG - CODE] IV (09:22)
== END 2017-02-05 13:00 | DRG 682 ==
LOC: MEDSG2 16:28
PROVIDERS: ADMIT Nurse Practitioner Acute Care; ATTEND Nurse Practitioner Acute Care
PROC: 05H633Z Insertion of Infusion Device into Left Subclavian Vein, Percutaneous Approach (ICD-10-PCS; principal; 2017-02-01)
DX: N17.9 Acute kidney failure, unspecified (principal); G93.41 Metabolic encephalopathy; J90 Pleural effusion, not elsewhere classified; E44.0 Moderate protein-calorie malnutrition; E88.09 Other disorders of plasma-protein metabolism, not elsewhere classified; C34.90 Malignant neoplasm of unspecified part of unspecified bronchus or lung; F03.91 Unspecified dementia, unspecified severity, with behavioral disturbance; D63.8 Anemia in other chronic diseases classified elsewhere; I13.0 Hypertensive heart and chronic kidney disease with heart failure and stage 1 through stage 4 chronic kidney disease, or unspecified chronic kidney disease; N39.0 Urinary tract infection, site not specified; J98.11 Atelectasis; E86.0 Dehydration; I50.9 Heart failure, unspecified; E78.5 Hyperlipidemia, unspecified; I25.10 Atherosclerotic heart disease of native coronary artery without angina pectoris; Z66 Do not resuscitate; K21.9 Gastro-esophageal reflux disease without esophagitis; N18.9 Chronic kidney disease, unspecified; Z87.891 Personal history of nicotine dependence; Z85.3 Personal history of malignant neoplasm of breast; Z90.10 Acquired absence of unspecified breast and nipple; E66.9 Obesity, unspecified; Z68.38 Body mass index [BMI] 38.0-38.9, adult; J44.9 Chronic obstructive pulmonary disease, unspecified; K52.9 Noninfective gastroenteritis and colitis, unspecified; F29 Unspecified psychosis not due to a substance or known physiological condition; Z92.21 Personal history of antineoplastic chemotherapy
CPT/HCPCS: 36415; 71010-TC; 71250-TC; 80048-TC; 80053-TC; 82550-TC; 82962-TC; 83735-TC; 83970; 84100-TC; 85025-TC; 87081-TC; J0360; J0696; J1815; J2060; J3490; J7030; J7042; J7050; J7060; Z7610